=== PATIENT | female | born 1955 | race Caucasian/White ===

== ENCOUNTER 2018-07-16 02:14 | Inpatient (IN) | payer OTHER ==
[2018-07-16] MEDS ORDERED: ALBUTEROL SO4 2.5/IPRATROPIUM 0.5 INH SOL 3 ML VIAL.NEB. NEB ONE ×2 (03:04→03:12)
--- NOTE | 2018-07-16 03:19 | PDOC ---
History of Present Illness - General Chief Complaint: Shortness of Breath Stated Complaint: SOB Time Seen by Provider: 07/16/18 02:45 History Source: Retirement Records Exam Limitations: Clinical Condition, Unresponsive - History of Present Illness Initial Comments: 07/16/18 03:18 62F with a PMH of HTN, hypothyroidism, COPD, anxiety, dementia, paranoid schizophrenia, who presents to the ED with paperwork indicating she is short of breath. Pt is nonverbal. Past History - Past Medical History Allergies/Adverse Reactions: Allergies Allergy/AdvReac Type Severity Reaction Status Date / Time No Known Allergies Allergy Verified 07/16/18 02:27 - Suicide/Smoking/Psychosocial Hx Smoking History: Never smoked Have you smoked in the past 12 months: No Information on smoking cessation initiated: No Hx Alcohol Use: No Drug/Substance Use Hx: No Review of Systems - Review of Systems Able to Perform ROS?: No (nonverbal) Is the patient limited Tamazight proficient: No *Physical Exam - Vital Signs Last Vital Signs Temp Pulse Resp BP Pulse Ox 98.6 F 94 H 22 H 107/76 92 L 07/16/18 02:14 07/16/18 02:14 07/16/18 02:14 07/16/18 02:14 07/16/18 02:14 - Physical Exam Comments: 07/16/18 04:58 GENERAL: Well developed, well nourished. Asleep but arousable. HEENT: Normocephalic, atraumatic. Hearing grossly normal. Moist mucous membranes. PERRLA, EOMI. No conjunctival pallor. Sclera are non-icteric. NECK: Supple. Full ROM. No JVD. CARDIOVASCULAR: Regular rate and rhythm. No murmurs, rubs, or gallops. PULMONARY: Diffuse wheezing with R sided crackles. Tachypneic. ABDOMINAL: Soft. Non-tender. Non-distended. No rebound or guarding. MUSCULOSKELETAL: Normal range of motion at all joints. No bony deformities or tenderness. EXTREMITIES: No cyanosis. No clubbing. No edema. No calf tenderness or swelling. SKIN: Warm and dry. Normal capillary refill. No rashes. No jaundice. NEUROLOGICAL: Alert, awake, appropriate. Cranial nerves 2-12 grossly intact. PSYCHIATRIC: Poor eye contact. ED Treatment Course - LABORATORY CBC & Chemistry Diagram: 07/16/18 04:15 07/16/18 04:15 - RADIOLOGY Radiology Studies Ordered: Category Date Time Status CHEST X-RAY PORTABLE* [RAD] Stat Radiology 07/16/18 03:04 Ordered Medical Decision Making - Medical Decision Making 07/16/18 03:24 62F with MMP who presents with SOB. retirement called and nurse states that the pt was noted to be hypoxic to 87, given O2 without improvement. Pt nonverbal at baseline. Pt was noted to be drooling and altered. In our facility, the patient becomes intermittently agitated. Labs drawn and sent, concern for septic workup with pt to be altered. CXR shows R sided consolidation vs effusion. Giving zosyn for PNA coverage. CBC sohws WBC of 16. CMP, trop, BNP pending. 07/16/18 05:28 Trop and BNP negative. Pt endorsed to Dr. Marr for admission. *DC/Admit/Observation/Transfer Diagnosis at time of Disposition: COPD (chronic obstructive pulmonary disease) Qualifiers: COPD type: COPD with acute exacerbation Qualified Code(s): J44.1 - Chronic obstructive pulmonary disease with (acute) exacerbation - Discharge Dispostion Condition at time of disposition: Guarded Decision to Admit order: Yes - Referrals Referrals: Alyce Farah MD [Primary Care Provider] - - Patient Instructions - Post Discharge Activity
[2018-07-16] MEDS ORDERED: methylPREDNISolone NA SUCC 125 MG/2 ML VIAL ONE (04:03)
[2018-07-16 04:07] LABS: ALLENS TEST POSITIVE
[2018-07-16 04:10] LABS: ARTERIAL BLD GAS O2 SATURATION 87.8 % (95-98); ARTERIAL BLOOD GAS BASE EXCESS -2.2 meq/l (-2-2); ARTERIAL BLOOD GAS PCO2 39.2 mmHg (35-45); ARTERIAL BLOOD GAS pH 7.37 (7.35-7.45); CARBOXYHEMOGLOBIN 1.5 % (0-2)
[2018-07-16 04:37] LABS: BASO % 0.3 % (0-2.0); HEMATOCRIT 34.6 % (32.4-45.2); HEMOGLOBIN 11.5 GM/dL (10.7-15.3); LYMPH % 1.7 % (8-40); MCH 30.8 pg (25.7-33.7); MCHC 33.3 g/dl (32.0-36.0); MEAN CELL VOLUME 92.6 fl (80-96); MEAN PLT VOLUME 9.1 fl (7.5-11.1); MONO % 3.5 % (3.8-10.2); NEUT % 94.5 % (42.8-82.8); PLATELET COUNT 184 K/MM3 (134-434); RBC 3.74 M/mm3 (3.60-5.2); WHITE BLOOD COUNT 16.4 K/mm3 (4.0-10.0)
[2018-07-16 04:47] LABS: INR 1.34 (0.83-1.09); PROTHROMBIN TIME (PATIENT) 15.9 SEC (9.7-13.0)
[2018-07-16] MEDS ORDERED: PIPERACILLIN/TAZOB 4.5 GM 4.5 GM in DEXTROSE 5%-WATER 100 ML IVPB ONE (04:56)
[2018-07-16 05:00] LABS: ALBUMIN 2.9 g/dl (3.4-5.0); ALK PHOS 74 U/L (45-117); ANION GAP 10 MMOL/L (8-16); BILIRUBIN,TOTAL 0.8 mg/dL (0.2-1); BLOOD UREA NITROGEN 13 mg/dL (7-18); CALCIUM 8.5 mg/dL (8.5-10.1); CHLORIDE 96 mmol/L (98-107); CO2 22 mmol/L (21-32); CREATININE 0.9 mg/dL (0.55-1.3); GLUCOSE,RANDOM 154 mg/dL (74-106); MAGNESIUM 2.5 mg/dL (1.8-2.4); N-TERMINAL BNP 96.2 pg/ml (5-125); POTASSIUM 3.7 mmol/L (3.5-5.1); SGOT/AST 29 U/L (15-37); SGPT/ALT 25 U/L (13-61); SODIUM 128 mmol/L (136-145); TOT PROT 6.3 g/dl (6.4-8.2)
--- NOTE | 2018-07-16 05:05 | PDOC ---
Documentation entered by Berto Wniter SCRIBE, acting as scribe for Kiana James DO. Kiana James DO: This documentation has been prepared by the Maggy hart Matthew, SCRIBE, under my direction and personally reviewed by me in its entirety. I confirm that the documentation accurately reflects all work, treatment, procedures, and medical decision making performed by me. Attending Attestation - Resident Resident Name: Gary Fleming - ED Attending Attestation I have performed the following: I have examined & evaluated the patient, The case was reviewed & discussed with the resident, I agree w/resident's findings & plan - HPI HPI: 07/16/18 03:31 Patient is a 62 year old patient with a significant past medical history of HTN , osteoporosis, hypothyroidism, anxiety, paranoid schizophrenia, anemia, schizoaffective disorder, bipolar disorder who presents to the ED with complaints of shortness of breath that began just prior to ED arrival. As per NH staff, patient was noticed to be experiencing shortness of breath as well as experiencing urinary and bowel incontinence. Nurse stated patient appeared not at baseline, prompting her to send her to the ED for further evaluation. Denies chest pain, sob. Denies nausea,vomiting. Denies fevers, chills. Denies contact with sick individuals, out of state travelling. Denies dysuria, hematuria. Denies constipation, diarrhea. Denies any other symptoms. Allergies: NKDA Social history: No smoking. No alcohol. No illicit drugs. Surgical history: None PMD: Dr. Farah / Dr. Barber - Physicial Exam PE: 07/16/18 03:31 Agree with residents Physical Exam. - Medical Decision Making 07/16/18 05:03 62-year-old female with shortness of breath per staff at her long term facility where she is a permanent resident Exam consistent with likely COPD exacerbation with pneumonia versus CHF, increased markings are present in the right lower lobe on x-ray Solu-Medrol 125 mg as well as DuoNeb's 3 given in the department with some relief Plan for admission to medical service for further evaluation
[2018-07-16] MEDS ORDERED: SODIUM CHLORIDE 0.9% 1000 ML INFUS.BAG IV ONE (05:06)
[2018-07-16] MEDS ORDERED: PIPERACILLIN/TAZOB 4.5 GM 4.5 GM/100 ML BAG IVPB ONE (05:10)
[2018-07-16 05:27] LABS: ANISOCYTOSIS 0; MACROCYTOSIS 0; PLATELET ESTIMATE NORMAL
--- NOTE | 2018-07-16 05:32 | HP ---
CHIEF COMPLAINT:shortness of breath PCP: Gagan HISTORY OF PRESENT ILLNESS: 62 year old woman with baseline dementia and nonverbal, [facility]. As per [facility] staff, patient was noticed to be experiencing shortness of breath and was prompted to be sent to hospital. ER course was notable for: (1) methylprednisone (2) zosyn (3) ekg Recent Travel: unknown PAST MEDICAL HISTORY: HTN, osteoporosis, hypothyroidism, anxiety, paranoid schizophrenia, anemia, schizoaffective disorder, bipolar disorder PAST SURGICAL HISTORY: unknown Social History: unknown, jail resident Smoking: Alcohol: Drugs: Family History: unknown Allergies No Known Allergies Allergy (Verified 07/16/18 02:27) HOME MEDICATIONS: REVIEW OF SYSTEMS -unable to obtain - patient is nonverbal PHYSICAL EXAMINATION Vital Signs - 24 hr 07/16/18 07/16/18 02:14 04:27 Temperature 98.6 F 98.8 F Pulse Rate 94 H Respiratory 22 H Rate Blood Pressure 107/76 O2 Sat by Pulse 92 L Oximetry (%) GENERAL: Awake, alert, nonverbal, does not follow commands breathing appears labored HEAD: Normal with no signs of trauma. EYES: Pupils equal, round and reactive to light, extraocular movements intact, sclera anicteric, conjunctiva clear. No lid lag. EARS, NOSE, THROAT: Ears normal, nares patent, oropharynx clear without exudates. Moist mucous membranes. NECK: Normal range of motion, supple without lymphadenopathy, JVD, or masses. LUNGS: bibasilar exp wheezing , right lung decreased breath sounds HEART: Regular rate and rhythm, normal S1 and S2 without murmur, rub or gallop. ABDOMEN: Soft, nontender, not distended, normoactive bowel sounds, no guarding, no rebound, no masses. MUSCULOSKELETAL: Normal range of motion at all joints. No bony deformities or tenderness. No CVA tenderness. UPPER EXTREMITIES: 2+ pulses, warm, well-perfused. No cyanosis. No clubbing. No peripheral edema. LOWER EXTREMITIES: 2+ pulses, warm, well-perfused. No calf tenderness. No peripheral edema. NEUROLOGICAL: Cranial nerves II-XII intact. PSYCHIATRIC: uncooperative. Good eye contact. Appropriate mood and affect. SKIN: Warm, dry, normal turgor, no rashes or lesions noted, normal capillary refill. Laboratory Results - last 24 hr 07/16/18 07/16/18 07/16/18 03:58 04:15 04:15 WBC 16.4 H RBC 3.74 Hgb 11.5 Hct 34.6 MCV 92.6 MCH 30.8 MCHC 33.3 RDW 13.0 Plt Count 184 MPV 9.1 Absolute Neuts (auto) 15.5 H Neutrophils % 94.5 H Lymphocytes % 1.7 L Monocytes % 3.5 L Eosinophils % 0.0 Basophils % 0.3 Nucleated RBC % 0 PT with INR 15.90 H INR 1.34 H PTT (Actin FS) Anticoagulation Therapy No Result Required. Puncture Site Right radial ABG pH 7.37 ABG pCO2 at Pt Temp 39.2 ABG pO2 at Pt Temp 56.0 L ABG HCO3 22.2 ABG O2 Sat (Measured) 87.8 L ABG O2 Content 14.3 L ABG Base Excess -2.2 L Patrick Test Positive Carboxyhemoglobin 1.5 Methemoglobin 0.1 O2 Delivery Device Aerosol mask Oxygen Flow Rate 3l Vent Mode No Result Required. Vent Rate No Result Required. Mechanical Rate No Result Required. Pressure Support Vent No Result Required. Sodium Potassium Chloride Carbon Dioxide Anion Gap BUN Creatinine Creat Clearance w eGFR Random Glucose Lactic Acid Calcium Magnesium Total Bilirubin AST ALT Alkaline Phosphatase Creatine Kinase Troponin I B-Natriuretic Peptide Total Protein Albumin 07/16/18 07/16/18 07/16/18 04:15 04:15 04:15 WBC RBC Hgb Hct MCV MCH MCHC RDW Plt Count MPV Absolute Neuts (auto) Neutrophils % Lymphocytes % Monocytes % Eosinophils % Basophils % Nucleated RBC % PT with INR INR PTT (Actin FS) 47.1 H Anticoagulation Therapy Puncture Site ABG pH ABG pCO2 at Pt Temp ABG pO2 at Pt Temp ABG HCO3 ABG O2 Sat (Measured) ABG O2 Content ABG Base Excess Patrick Test Carboxyhemoglobin Methemoglobin O2 Delivery Device Oxygen Flow Rate Vent Mode Vent Rate Mechanical Rate Pressure Support Vent Sodium 128 L Potassium 3.7 Chloride 96 L Carbon Dioxide 22 Anion Gap 10 BUN 13 Creatinine 0.9 Creat Clearance w eGFR 63.04 Random Glucose 154 H Lactic Acid 1.8 Calcium 8.5 Magnesium 2.5 H Total Bilirubin 0.8 AST 29 ALT 25 Alkaline Phosphatase 74 Creatine Kinase 796 H Troponin I < 0.02 B-Natriuretic Peptide 96.2 Total Protein 6.3 L Albumin 2.9 L CXR and ekg reviewed ASSESSMENT/PLAN: #62yo woman with hypoxemic resp failure , sepsis secondary to community acquired pneumonia vs pleural effusion vs COPD/asthma exacerbation. PE will be ruled out. Likely large pleural effusion w/ compressive atelectasis. + leukocytosis. Lactate, troponin normal. S/p zosyn in ER. -admit to med/surg -supplemental oxygen via nasal cannula- maintain 02 sat >95% -duonebs - q6hrs -methylprednsione 40mg IV q8hrs -CTA of chest - evaluate pleural effusion, infiltrates, r/o PE -repeat ABG -ceftriaxone and azithromycin for pna - community acquired -blood cultures x2 sent -sputum cultur -urine legionella ag -pulmonary consult #hypothyroidism- -c/w home dose levothyroxine -send tsh #Bipolar disorder -c/w home dose lithium -send serum lithium level -450mg po bid -c/w Risperdal- verify dose in am with pharmacy #HTN - -c/w amlodipine #osteoporosis -will c/w alendronate 70mg qwk #DVT ppx- heparin sc #Advanced directives-patient is DNR/DNI Visit type - Emergency Visit Emergency Visit: Yes ED Registration Date: 07/16/18 Care time: The patient presented to the Emergency Department on the above date and was hospitalized for further evaluation of their emergent condition. - New Patient This patient is new to me today: Yes Date on this admission: 07/16/18 - Critical Care Critical Care patient: No
[2018-07-16] MEDS ORDERED: SENNOSIDES/DOCUSATE COMBO (SENNA PLUS) TABLET (UD) PO PRN (06:08)
[2018-07-16] MEDS ORDERED: ASPIRIN 81 MG CHEWABLE TABLETS PO ONE (06:15)
[2018-07-16] MEDS ORDERED: ASPIRIN 81 MG CHEWABLE TABLETS PO SCH (06:15)
[2018-07-16] MEDS ORDERED: PATIENT'S OWN MEDICATION (NON-FORMULARY) (Alendronate Sodium [Binosto] 70 MG) PO SCH (06:15)
[2018-07-16] MEDS: ALBUTEROL SO4 2.5/IPRATROPIUM 0.5 INH SOL 3 ML VIAL.NEB. NEB SCH ×4 (07:14→20:24)
[2018-07-16] MEDS: LEVOTHYROXINE NA 100 MCG TABLET (FP) PO SCH (07:14)
[2018-07-16 07:58] LABS: URINE APPEARANCE CLEAR; URINE BILIRUBIN NEGATIVE (NEGATIVE); URINE COLOR YELLOW; URINE GLUCOSE (UA) NEGATIVE (NEGATIVE); URINE KETONE NEGATIVE (NEGATIVE); URINE LEUK ESTERASE NEGATIVE (NEGATIVE); URINE NITRITE NEGATIVE (NEGATIVE); URINE PROTEIN NEGATIVE (NEGATIVE); URINE UROBILINOGEN 0.2 mg/dL (0.2-1.0)
--- NOTE | 2018-07-16 08:28 | EKG ---
Test Reason : Blood Pressure : / mmHG Vent. Rate : 079 BPM Atrial Rate : 079 BPM P-R Int : 150 ms QRS Dur : 078 ms QT Int : 380 ms P-R-T Axes : 010 023 027 degrees QTc Int : 435 ms NORMAL SINUS RHYTHM NORMAL ECG NO PREVIOUS ECGS AVAILABLE Confirmed by VIRI ZHOU, CAROLYN ([id number]) on 07/16/2018 8:27:47 AM Referred By: Kevin MARTIN Confirmed By:CAROLYN MEREDITH MD
[2018-07-16] MEDS ORDERED: amLODIPine BESYLATE 5 MG TABLET (FP) ONE (09:46)
--- NOTE | 2018-07-16 10:16 | PN ---
Progress Note (short form) - Note Progress Note: pt examinedin ER awake coughing active smoker in NH Vital Signs - 24 hr 07/16/18 07/16/18 07/16/18 02:14 02:19 04:27 Temperature 98.6 F 98.8 F Pulse Rate 94 H Pulse Rate [ Right Radial] Respiratory 22 H Rate Blood Pressure 107/76 Blood Pressure [Left Arm] O2 Sat by Pulse 92 L 97 Oximetry (%) 07/16/18 07/16/18 07/16/18 06:21 07:15 12:00 Temperature 97.7 F Pulse Rate 81 Pulse Rate [ 87 Right Radial] Respiratory 20 20 20 Rate Blood Pressure 118/69 Blood Pressure 119/79 [Left Arm] O2 Sat by Pulse 100 100 98 Oximetry (%) 07/16/18 14:20 Temperature 98.0 F Pulse Rate 94 H Pulse Rate [ Right Radial] Respiratory 20 Rate Blood Pressure 96/61 Blood Pressure [Left Arm] O2 Sat by Pulse Oximetry (%) Current Medications Generic Name Dose Route Start Last Admin Trade Name Freq PRN Reason Stop Dose Admin Albuterol/Ipratropium 1 amp 07/16/18 08:00 07/16/18 12:40 Duoneb - NEB 1 amp RQID STEWART Administration Amlodipine Besylate 5 mg 07/16/18 10:00 07/16/18 10:28 Norvasc - PO 5 mg DAILY STEWART Administration Docusate Sodium 100 mg 07/16/18 22:00 Colace - PO HS STEWART Gabapentin 100 mg 07/16/18 10:00 07/16/18 10:28 Neurontin - PO 100 mg BID STEWART Administration Azithromycin 500 mg/ Dextrose 250 mls @ 250 mls/hr 07/16/18 10:00 07/16/18 11 :31 IVPB 250 mls/hr DAILY STEWART Administration Ceftriaxone Sodium 1 gm/ 50 mls @ 100 mls/hr 07/16/18 10:00 07/16/18 10:28 Dextrose IVPB 100 mls/hr DAILY STEWART Administration Protocol Levetiracetam 500 mg 07/16/18 10:00 07/16/18 10:27 Keppra - PO 500 mg BID STEWART Administration Levothyroxine Sodium 100 mcg 07/16/18 07:00 07/16/18 07:14 Synthroid - PO 100 mcg DAILY@0700 STEWART Administration [place] Carbonate 450 mg 07/16/18 10:00 07/16/18 10:27 Eskalith - PO 450 mg BID STEWART Administration Methylprednisolone Sodium Succinate 40 mg 07/16/18 10:00 07/16/18 10:28 Solu-Medrol - IVPUSH 40 mg Q8H-IV STEWART Administration Risperidone 2 mg 07/16/18 10:00 07/16/18 10:28 Risperdal - PO 2 mg DAILY STEWART Administration Senna/Docusate Sodium 1 tablet 07/16/18 06:08 Pericolace - PO HS PRN CONSTIPATION Laboratory Results - last 24 hr 07/16/18 07/16/18 07/16/18 03:58 04:15 04:15 WBC 16.4 H RBC 3.74 Hgb 11.5 Hct 34.6 MCV 92.6 MCH 30.8 MCHC 33.3 RDW 13.0 Plt Count 184 MPV 9.1 Absolute Neuts (auto) 15.5 H Neutrophils % 94.5 H Neutrophils % (Manual) 96.0 H Band Neutrophils % 0.0 Lymphocytes % 1.7 L Lymphocytes % (Manual) 2.0 L Monocytes % 3.5 L Monocytes % (Manual) 2 L Eosinophils % 0.0 Eosinophils % (Manual) 0.0 Basophils % 0.3 Basophils % (Manual) 0.0 Myelocytes % (Man) 0 Promyelocytes % (Man) 0 Blast Cells % (Manual) 0 Nucleated RBC % 0 Metamyelocytes 0 Hypochromia 0 Platelet Estimate Normal Polychromasia 0 Poikilocytosis 0 Anisocytosis 0 Microcytosis 0 Macrocytosis 0 PT with INR 15.90 H INR 1.34 H PTT (Actin FS) Anticoagulation Therapy No Result Required. Puncture Site Right radial ABG pH 7.37 ABG pCO2 at Pt Temp 39.2 ABG pO2 at Pt Temp 56.0 L ABG HCO3 22.2 ABG O2 Sat (Measured) 87.8 L ABG O2 Content 14.3 L ABG Base Excess -2.2 L Patrick Test Positive Carboxyhemoglobin 1.5 Methemoglobin 0.1 O2 Delivery Device Aerosol mask Oxygen Flow Rate 3l Vent Mode No Result Required. Vent Rate No Result Required. Mechanical Rate No Result Required. Pressure Support Vent No Result Required. Sodium Potassium Chloride Carbon Dioxide Anion Gap BUN Creatinine Creat Clearance w eGFR Random Glucose Lactic Acid Calcium Magnesium Total Bilirubin AST ALT Alkaline Phosphatase Creatine Kinase Creatine Kinase Index CK-MB (CK-2) Troponin I B-Natriuretic Peptide Total Protein Albumin TSH Urine Color Urine Appearance Urine pH Ur Specific [place] Urine Protein Urine Glucose (UA) Urine Ketones Urine Blood Urine Nitrite Urine Bilirubin Urine Urobilinogen Ur Leukocyte Esterase Urine Osmolality Ur Random Creatinine Ur Random Sodium 07/16/18 07/16/18 07/16/18 04:15 04:15 04:15 WBC RBC Hgb Hct MCV MCH MCHC RDW Plt Count MPV Absolute Neuts (auto) Neutrophils % Neutrophils % (Manual) Band Neutrophils % Lymphocytes % Lymphocytes % (Manual) Monocytes % Monocytes % (Manual) Eosinophils % Eosinophils % (Manual) Basophils % Basophils % (Manual) Myelocytes % (Man) Promyelocytes % (Man) Blast Cells % (Manual) Nucleated RBC % Metamyelocytes Hypochromia Platelet Estimate Polychromasia Poikilocytosis Anisocytosis Microcytosis Macrocytosis PT with INR INR PTT (Actin FS) 47.1 H Anticoagulation Therapy Puncture Site ABG pH ABG pCO2 at Pt Temp ABG pO2 at Pt Temp ABG HCO3 ABG O2 Sat (Measured) ABG O2 Content ABG Base Excess Patrick Test Carboxyhemoglobin Methemoglobin O2 Delivery Device Oxygen Flow Rate Vent Mode Vent Rate Mechanical Rate Pressure Support Vent Sodium 128 L Potassium 3.7 Chloride 96 L Carbon Dioxide 22 Anion Gap 10 BUN 13 Creatinine 0.9 Creat Clearance w eGFR 63.04 Random Glucose 154 H Lactic Acid 1.8 Calcium 8.5 Magnesium 2.5 H Total Bilirubin 0.8 AST 29 ALT 25 Alkaline Phosphatase 74 Creatine Kinase 796 H Creatine Kinase Index 2.1 CK-MB (CK-2) 17.0 H Troponin I < 0.02 B-Natriuretic Peptide 96.2 Total Protein 6.3 L Albumin 2.9 L TSH 1.52 Urine Color Urine Appearance Urine pH Ur Specific [place] Urine Protein Urine Glucose (UA) Urine Ketones Urine Blood Urine Nitrite Urine Bilirubin Urine Urobilinogen Ur Leukocyte Esterase Urine Osmolality Ur Random Creatinine Ur Random Sodium 07/16/18 07/16/18 07/16/18 07:35 07:35 07:35 WBC RBC Hgb Hct MCV MCH MCHC RDW Plt Count MPV Absolute Neuts (auto) Neutrophils % Neutrophils % (Manual) Band Neutrophils % Lymphocytes % Lymphocytes % (Manual) Monocytes % Monocytes % (Manual) Eosinophils % Eosinophils % (Manual) Basophils % Basophils % (Manual) Myelocytes % (Man) Promyelocytes % (Man) Blast Cells % (Manual) Nucleated RBC % Metamyelocytes Hypochromia Platelet Estimate Polychromasia Poikilocytosis Anisocytosis Microcytosis Macrocytosis PT with INR INR PTT (Actin FS) Anticoagulation Therapy Puncture Site ABG pH ABG pCO2 at Pt Temp ABG pO2 at Pt Temp ABG HCO3 ABG O2 Sat (Measured) ABG O2 Content ABG Base Excess Patrick Test Carboxyhemoglobin Methemoglobin O2 Delivery Device Oxygen Flow Rate Vent Mode Vent Rate Mechanical Rate Pressure Support Vent Sodium Potassium Chloride Carbon Dioxide Anion Gap BUN Creatinine Creat Clearance w eGFR Random Glucose Lactic Acid Calcium Magnesium Total Bilirubin AST ALT Alkaline Phosphatase Creatine Kinase Creatine Kinase Index CK-MB (CK-2) Troponin I B-Natriuretic Peptide Total Protein Albumin TSH Urine Color Yellow Urine Appearance Clear Urine pH 6.0 Ur Specific [place] 1.005 L Urine Protein Negative Urine Glucose (UA) Negative Urine Ketones Negative Urine Blood Negative Urine Nitrite Negative Urine Bilirubin Negative Urine Urobilinogen 0.2 Ur Leukocyte Esterase Negative Urine Osmolality 138 L Ur Random Creatinine 28.0 L Ur Random Sodium 07/16/18 07/16/18 07:35 10:00 WBC RBC Hgb Hct MCV MCH MCHC RDW Plt Count MPV Absolute Neuts (auto) Neutrophils % Neutrophils % (Manual) Band Neutrophils % Lymphocytes % Lymphocytes % (Manual) Monocytes % Monocytes % (Manual) Eosinophils % Eosinophils % (Manual) Basophils % Basophils % (Manual) Myelocytes % (Man) Promyelocytes % (Man) Blast Cells % (Manual) Nucleated RBC % Metamyelocytes Hypochromia Platelet Estimate Polychromasia Poikilocytosis Anisocytosis Microcytosis Macrocytosis PT with INR INR PTT (Actin FS) Anticoagulation Therapy Puncture Site ABG pH ABG pCO2 at Pt Temp ABG pO2 at Pt Temp ABG HCO3 ABG O2 Sat (Measured) ABG O2 Content ABG Base Excess Patrick Test Carboxyhemoglobin Methemoglobin O2 Delivery Device Oxygen Flow Rate Vent Mode Vent Rate Mechanical Rate Pressure Support Vent Sodium Potassium Chloride Carbon Dioxide Anion Gap BUN Creatinine Creat Clearance w eGFR Random Glucose Lactic Acid Calcium Magnesium Total Bilirubin AST ALT Alkaline Phosphatase Creatine Kinase Creatine Kinase Index CK-MB (CK-2) Troponin I < 0.02 B-Natriuretic Peptide Total Protein Albumin TSH Urine Color Urine Appearance Urine pH Ur Specific [place] Urine Protein Urine Glucose (UA) Urine Ketones Urine Blood Urine Nitrite Urine Bilirubin Urine Urobilinogen Ur Leukocyte Esterase Urine Osmolality Ur Random Creatinine Ur Random Sodium < 18 L S1 S2 RRR Lungs diffuse ronchi Abd- soft, NT no edema PLAN IV solumedrol, nebs and antibiotics smoking cessation Chest CT Pulmonary eval continue with meds Problem List - Problems (1) COPD (chronic obstructive pulmonary disease) Code(s): J44.9 - CHRONIC OBSTRUCTIVE PULMONARY DISEASE, UNSPECIFIED Qualifiers: COPD type: COPD with acute exacerbation Qualified Code(s): J44.1 - Chronic obstructive pulmonary disease with (acute) exacerbation (2) COPD with acute exacerbation Code(s): J44.1 - CHRONIC OBSTRUCTIVE PULMONARY DISEASE W (ACUTE) EXACERBATION (3) Pleural effusion Code(s): J90 - PLEURAL EFFUSION, NOT ELSEWHERE CLASSIFIED
[2018-07-16] MEDS: LITHIUM CARBONATE 450 MG TABLET.ER PO SCH ×2 (10:27→21:13)
[2018-07-16] MEDS: levETIRAcetam 500 MG TABLET (FP) PO SCH ×2 (10:27→21:06)
[2018-07-16] MEDS: risperiDONE 1 MG TABLET (FP) PO SCH (10:28)
[2018-07-16] MEDS: GABAPENTIN 100 MG CAPSULE (FP) PO SCH ×2 (10:28→21:06)
[2018-07-16] MEDS: CEFTRIAXONE 1 GM in DEXTROSE 5%-WATER - 50 ML IVPB SCH (10:28)
[2018-07-16] MEDS: amLODIPine BESYLATE 5 MG TABLET (FP) PO SCH (10:28)
[2018-07-16] MEDS: methylPREDNISolone NA SUCC 40 MG/1 ML VIAL IVPUSH SCH ×2 (10:28→18:09)
[2018-07-16] MEDS: AZITHROMYCIN IVPB 500 MG in DEXTROSE 5%-WATER - 250 ML IVPB SCH (11:31)
[2018-07-16 13:41] VITALS: BMI 32.3
--- NOTE | 2018-07-16 14:10 | CON.PULM ---
Consult Consult Specialty:: PULMONARY Referred by:: Dr Barber Reason for Consultation:: pneumonia - History of Present Illness Chief Complaint: shortness of breath History of Present Illness: 62yo female with h/o HTN, hypothyroidism, schizoaffective disorder, dementia who was transferred for worsening shortness of breath. Pt unable to provide reliable history at this time. No fevers recorded but with leukocytosis on bloodwork and right sided effusion seen on CXR. Started on solumedrol and antibiotics. - History Source History Provided By: Medical Record Limitations to Obtaining History: Poor Historian - Past Medical History Cardio/Vascular: Yes: HTN ...: No - Alcohol/Substance Use Hx Alcohol Use: No - Smoking History Smoking history: Never smoked Have you smoked in the past 12 months: No Home Medications - Allergies Allergies/Adverse Reactions: Allergies Allergy/AdvReac Type Severity Reaction Status Date / Time No Known Allergies Allergy Verified 07/16/18 02:27 - Home Medications Home Medications: Ambulatory Orders Acetaminophen [Tylenol] 325 mg PO PRN 07/16/18 Alendronate Sodium [Binosto] 70 mg PO WEEKLY 07/16/18 Amlodipine Besylate 5 mg PO DAILY 07/16/18 Aspirin 81 mg PO ONCE 07/16/18 Budesonide/Formeterol Fumarate [SYMBICORT 160/4.5mcg -] 1 inh PO BID 07/16/18 Cyanocobalamin [Vitamin B12 -] 1,000 mcg PO DAILY 07/16/18 Docusate Sodium [Colace -] 100 mg PO HS 07/16/18 Ergocalciferol [Vitamin D2] 50,000 unit PO Q7D@1000 07/16/18 Ferrous Sulfate 325 mg PO ONCE 07/16/18 Gabapentin 100 mg PO BID 07/16/18 Levetiracetam 500 mg PO BID 07/16/18 Levothyroxine [Synthroid -] 100 mcg PO DAILY 07/16/18 [place] Carbonate [Eskalith -] 450 mg PO BID 07/16/18 Magnesium Hydroxide [Milk of Magnesia -] 30 ml PO PRN 07/16/18 Prednisone 10 mg PO DAILY 07/16/18 Prednisone [Prednisone 50 MG TABLETS] 50 mg PO DAILY 07/16/18 Risperidone 0.5 mg PO DAILY 07/16/18 Risperidone [Risperdal -] 2 mg PO DAILY 07/16/18 Sennosides/Docusate Sodium [Senna-Docusate Sodium Tablet] 1 each PO HS 07/16/18 Review of Systems Unable to obtain ROS, reason: poor historian Physical Exam Vital Sings: Vital Signs Temperature 97.7 F 07/16/18 12:00 Pulse Rate 81 07/16/18 12:00 Respiratory Rate 20 07/16/18 12:00 Blood Pressure 140/69 07/16/18 12:00 O2 Sat by Pulse Oximetry (%) 100 07/16/18 07:15 Constitutional: Yes: Anxious Eyes: Yes: Conjunctiva Clear, EOM Intact HENT: Yes: Atraumatic, Normocephalic Neck: Yes: Supple, Trachea Midline Cardiovascular: Yes: Regular Rate and Rhythm Respiratory: Yes: Rhonchi, Wheezes ...Clubbing: No Gastrointestinal: Yes: Normal Bowel Sounds, Soft. No: Tenderness Edema: No Neurological: Yes: Confusion Labs: CBC, BMP 07/16/18 04:15 07/16/18 04:15 ABG Results ABG pH 7.37 (7.35-7.45) 07/16/18 03:58 ABG pCO2 at Pt Temp 39.2 mmHg (35-45) 07/16/18 03:58 ABG pO2 at Pt Temp 56.0 mmHg (80-105) L 07/16/18 03:58 ABG HCO3 22.2 mmol/L (22-27) 07/16/18 03:58 ABG O2 Sat (Measured) 87.8 % (95-98) L 07/16/18 03:58 ABG O2 Content 14.3 % vol (15-22) L 07/16/18 03:58 ABG Base Excess -2.2 meq/l (-2-2) L 07/16/18 03:58 Imaging - Results Chest X-ray: Report Reviewed, Image Reviewed (right sided effusion, r/o infiltrate) Problem List - Problems (1) Pneumonia Code(s): J18.9 - PNEUMONIA, UNSPECIFIED ORGANISM (2) COPD with acute exacerbation Code(s): J44.1 - CHRONIC OBSTRUCTIVE PULMONARY DISEASE W (ACUTE) EXACERBATION (3) Pleural effusion Code(s): J90 - PLEURAL EFFUSION, NOT ELSEWHERE CLASSIFIED Assessment/Plan Pneumonia Acute COPD Exacerbation Right Pleural Effusion HTN Schizophrenia/Schizoaffective Disorder Bipolar Disorder - agree with antibiotics - f/u cultures - IV medrol - inhaled bronchodilators standing and PRN - O2 to keep SpO2 >90% - aspiration precautions - DVT prophylaxis Thank you for this consult Kenny Cedeno MD
--- NOTE | 2018-07-16 15:02 | ECHO ---
Name: BYNUMJEFFREY Exam:Adult Echocardiogram Study Date: 07/16/2018 10:26 AM Age: 62 yrs Reason For Study: R/O CHF Height: 61 in Weight: 174 lb BSA: 1.8 m2 MMode/2D Measurements & Calculations IVSd: 0.82 cm Ao root diam: 2.7 cm LVIDd: 4.4 cm LA dimension: 3.0 cm LVIDs: 2.9 cm LVPWd: 1.1 cm EDV(Teich): 89.0 ml LVOT diam: 2.0 cm ESV(Teich): 33.1 ml LAV (MOD-bp): 31.8 ml Doppler Measurements & Calculations MV E max isra: 61.1 cm/sec Ao V2 max: 163.0 cm/sec MV A max isra: 93.6 cm/sec Ao max P.6 mmHg MV E/A: 0.65 MV dec time: 0.11 sec MICHAEL(V,D): 2.6 cm2 LV V1 max P.7 mmHg TR max isra: 231.0 cm/sec LV V1 max: 129.0 cm/sec TR max P.4 mmHg PA V2 max: 114.0 cm/sec Med Peak E' Isra: 7.9 cm/sec PA max P.2 mmHg Med E/e': 7.7 Lat Peak E' Isra: 15.0 cm/sec Lat E/e': 4.1 Procedure A two-dimensional transthoracic echocardiogram with color flow and Doppler was performed. Left Ventricle The left ventricular size, thickness and function are normal. The left ventricular ejection fraction is normal. E/A reversal consistent with but not diagnostic of poor LV compliance. The left ventricular w all motion is normal. Right Ventricle The right ventricle is normal in size and function. Atria Normal left and right atrial size and function. Mitral Valve There is trivial mitral valve thickening. There is no mitral valve stenosis. There is trace to mild m itral regurgitation. Tricuspid Valve There is mild tricuspid valve thickening. There is no tricuspid stenosis. There is mild tricuspid regurgitation. Right ventricular systolic pressure is normal. Aortic Valve The aortic valve is normal in structure and function. No hemodynamically significant valvular aortic stenosis. No aortic regurgitation is present. Pulmonic Valve The pulmonic valve is not well visualized. Great Vessels The aortic root is normal size. Pericardium/Pleura There is no pericardial effusion. Interpretation Summary The left ventricular size, thickness and function are normal The left ventricular ejection fraction is normal. The left ventricular wall motion is normal. E/A reversal consistent with but not diagnostic of poor LV compliance There is trace to mild mitral regurgitation. There is mild tricuspid regurgitation. Right ventricular systolic pressure is normal. MD Bhavesh Galloway 07/16/2018 03:01 PM
[2018-07-16] MEDS ORDERED: HALOPERIDOL LACTATE 5 MG/ML IM PRN (16:32)
[2018-07-16] MEDS: HALOPERIDOL LACTATE 5 MG/ML IM PRN (21:05)
[2018-07-16] MEDS: DOCUSATE SODIUM 100 MG CAPSULE (FP) PO SCH (21:07)
[2018-07-17] MEDS: methylPREDNISolone NA SUCC 40 MG/1 ML VIAL IVPUSH SCH ×4 (01:37→18:32)
[2018-07-17] MEDS: LEVOTHYROXINE NA 100 MCG TABLET (FP) PO SCH (06:25)
[2018-07-17] MEDS: ALBUTEROL SO4 2.5/IPRATROPIUM 0.5 INH SOL 3 ML VIAL.NEB. NEB SCH ×4 (07:15→19:20)
[2018-07-17] MEDS ORDERED: DEXTROSE 5%-WATER - 50 ML IVPB ONE (10:27)
[2018-07-17] MEDS ORDERED: cefTRIAXone SODIUM 1 GM VIAL ONE (10:27)
[2018-07-17] MEDS: levETIRAcetam 500 MG TABLET (FP) PO SCH ×2 (10:33→21:29)
[2018-07-17] MEDS: LITHIUM CARBONATE 450 MG TABLET.ER PO SCH ×2 (10:33→21:30)
[2018-07-17] MEDS: CEFTRIAXONE 1 GM in DEXTROSE 5%-WATER - 50 ML IVPB SCH ×2 (10:33→12:30)
[2018-07-17] MEDS: risperiDONE 1 MG TABLET (FP) PO SCH (10:33)
[2018-07-17] MEDS: amLODIPine BESYLATE 5 MG TABLET (FP) PO SCH (10:33)
[2018-07-17] MEDS: GABAPENTIN 100 MG CAPSULE (FP) PO SCH ×2 (10:33→21:31)
[2018-07-17] MEDS: AZITHROMYCIN IVPB 500 MG/250 ML BAG IVPB SCH ×2 (10:34→12:30)
[2018-07-17] MEDS: AZITHROMYCIN IVPB 500 MG in DEXTROSE 5%-WATER - 250 ML IVPB SCH (10:37)
[2018-07-17] MEDS ORDERED: VANCOMYCIN 1 GM in D5W (PRE-DOCKED) 1,000 MG/250 ML IVPB ONE (11:15)
[2018-07-17] MEDS: NICOTINE 14 MG/24 HOURS TOPICAL PATCH TD SCH (12:31)
--- NOTE | 2018-07-17 13:47 | PN ---
Progress Note (short form) - Note Progress Note: PULMONARY Not answering questions today. No fevers recorded. Vital Signs Period Temp Pulse Resp BP Sys/Martinez Pulse Ox Last 24 Hr 98.0 F-98.5 F 71-98 20-20 91-134/52-94 97 Gen: NAD at rest Heart: RRR Lung: scattered wheezes Abd: soft, nontender Ext: no edema CBC, BMP 07/16/18 04:15 07/16/18 04:15 Active Medications Albuterol/Ipratropium (Duoneb -) 1 amp NEB RQID [facility] Last Admin: 07/17/18 11:00 Dose: 1 amp Amlodipine Besylate (Norvasc -) 5 mg PO DAILY [facility] Last Admin: 07/17/18 10:33 Dose: 5 mg Docusate Sodium (Colace -) 100 mg PO HS [facility] Last Admin: 07/16/18 21:07 Dose: 100 mg Gabapentin (Neurontin -) 100 mg PO BID [facility] Last Admin: 07/17/18 10:33 Dose: 100 mg Haloperidol (Haldol Injection (Fast Acting) -) 5 mg IM Q8H PRN PRN Reason: AGITATION Last Admin: 07/16/18 21:05 Dose: 5 mg Ceftriaxone Sodium 1 gm/ (Dextrose) 50 mls @ 100 mls/hr IVPB DAILY [facility]; Protocol Last Admin: 07/17/18 12:30 Dose: 100 mls/hr Azithromycin (Zithromax 500mg Ivpb (Pre-Docked)) 500 mg in 250 mls @ 250 mls/ hr IVPB DAILY [facility] Last Admin: 07/17/18 12:30 Dose: 250 mls/hr Levetiracetam (Keppra -) 500 mg PO BID [facility] Last Admin: 07/17/18 10:33 Dose: 500 mg Levothyroxine Sodium (Synthroid -) 100 mcg PO DAILY@0700 [facility] Last Admin: 07/17/18 06:25 Dose: 100 mcg [place] Carbonate (Eskalith -) 450 mg PO BID [facility] Last Admin: 07/17/18 10:33 Dose: 450 mg Methylprednisolone Sodium Succinate (Solu-Medrol -) 40 mg IVPUSH Q8H-IV [facility] Last Admin: 07/17/18 12:30 Dose: 40 mg Nicotine (Nicoderm Patch -) 14 mg TD DAILY [facility] Last Admin: 07/17/18 12:31 Dose: 14 mg Risperidone (Risperdal -) 2 mg PO DAILY [facility] Last Admin: 07/17/18 10:33 Dose: 2 mg Senna/Docusate Sodium (Pericolace -) 1 tablet PO HS PRN PRN Reason: CONSTIPATION A/P Pneumonia Acute COPD Exacerbation Right Pleural Effusion HTN Hyponatremia Schizophrenia/Schizoaffective Disorder Bipolar Disorder - continue antibiotics - f/u culture - continue medrol at current dose - inhaled bronchodilators standing and PRN - O2 to keep SpO2 >90% - aspiration precautions - DVT prophylaxis - outpt f/u of chest imaging Problem List - Problems (1) Pneumonia Code(s): J18.9 - PNEUMONIA, UNSPECIFIED ORGANISM (2) COPD with acute exacerbation Code(s): J44.1 - CHRONIC OBSTRUCTIVE PULMONARY DISEASE W (ACUTE) EXACERBATION (3) Pleural effusion Code(s): J90 - PLEURAL EFFUSION, NOT ELSEWHERE CLASSIFIED
--- NOTE | 2018-07-17 15:59 | PN ---
Progress Note (short form) - Note Progress Note: pt examined awake coughing was agitated today but now is calm Vital Signs - 24 hr 07/16/18 07/16/18 07/16/18 19:31 21:00 21:49 Temperature 98.5 F 98.0 F Pulse Rate 98 H 71 Respiratory 20 20 20 Rate Blood Pressure 91/52 L 104/59 L O2 Sat by Pulse 97 Oximetry (%) 07/16/18 07/16/18 07/17/18 22:32 23:25 05:47 Temperature 98.2 F 98.2 F 98.2 F Pulse Rate 82 80 97 H Respiratory 20 20 20 Rate Blood Pressure 100/62 116/71 O2 Sat by Pulse Oximetry (%) 07/17/18 10:52 Temperature 98.0 F Pulse Rate 97 H Respiratory 20 Rate Blood Pressure 134/94 O2 Sat by Pulse Oximetry (%) Current Medications Generic Name Dose Route Start Last Admin Trade Name Freq PRN Reason Stop Dose Admin Albuterol/Ipratropium 1 amp 07/16/18 08:00 07/17/18 11:00 Duoneb - NEB 1 amp RQID [facility] Administration Amlodipine Besylate 5 mg 07/16/18 10:00 07/17/18 10:33 Norvasc - PO 5 mg DAILY [facility] Administration Docusate Sodium 100 mg 07/16/18 22:00 07/16/18 21:07 Colace - PO 100 mg HS [facility] Administration Gabapentin 100 mg 07/16/18 10:00 07/17/18 10:33 Neurontin - PO 100 mg BID [facility] Administration Haloperidol 5 mg 07/16/18 16:33 07/16/18 21:05 Haldol Injection (Fast Acting) - IM 5 mg Q8H PRN Administration AGITATION Ceftriaxone Sodium 1 gm/ 50 mls @ 100 mls/hr 07/16/18 10:00 07/17/18 12:30 Dextrose IVPB 100 mls/hr DAILY [facility] Administration Protocol Azithromycin 500 mg in 250 mls @ 250 mls/hr 07/17/18 10:30 07/17/18 12:30 Zithromax 500mg Ivpb (Pre-Docked) IVPB 250 mls/hr DAILY [facility] Administration Levetiracetam 500 mg 07/16/18 10:00 07/17/18 10:33 Keppra - PO 500 mg BID [facility] Administration Levothyroxine Sodium 100 mcg 07/16/18 07:00 07/17/18 06:25 Synthroid - PO 100 mcg DAILY@0700 [facility] Administration [place] Carbonate 450 mg 07/16/18 10:00 07/17/18 10:33 Eskalith - PO 450 mg BID [facility] Administration Methylprednisolone Sodium Succinate 40 mg 07/16/18 10:00 07/17/18 12:30 Solu-Medrol - IVPUSH 40 mg Q8H-IV [facility] Administration Nicotine 14 mg 07/17/18 12:00 07/17/18 12:31 Nicoderm Patch - TD 14 mg DAILY [facility] Administration Risperidone 2 mg 07/16/18 10:00 07/17/18 10:33 Risperdal - PO 2 mg DAILY [facility] Administration Senna/Docusate Sodium 1 tablet 07/16/18 06:08 Pericolace - PO HS PRN CONSTIPATION Laboratory Results - last 24 hr 07/16/18 07/16/18 07/16/18 10:00 17:02 20:57 POC Glucometer 138 158 [place] 1.1 S1 S2 RRR Lungs diffuse ronchi Abd- soft, NT no edema PLAN IV solumedrol, nebs and antibiotics smoking cessation Chest CT - done Pulmonary eval Noted continue with meds Problem List - Problems (1) COPD (chronic obstructive pulmonary disease) Code(s): J44.9 - CHRONIC OBSTRUCTIVE PULMONARY DISEASE, UNSPECIFIED Qualifiers: COPD type: COPD with acute exacerbation Qualified Code(s): J44.1 - Chronic obstructive pulmonary disease with (acute) exacerbation (2) COPD with acute exacerbation Code(s): J44.1 - CHRONIC OBSTRUCTIVE PULMONARY DISEASE W (ACUTE) EXACERBATION (3) Pleural effusion Code(s): J90 - PLEURAL EFFUSION, NOT ELSEWHERE CLASSIFIED
[2018-07-17] MEDS: HALOPERIDOL LACTATE 5 MG/ML IM PRN (18:39)
[2018-07-17] MEDS ORDERED: PT OWN MED DRAWER 7, Y5N ONE (20:26)
[2018-07-17] MEDS: DOCUSATE SODIUM 100 MG CAPSULE (FP) PO SCH (21:31)
[2018-07-18] MEDS: methylPREDNISolone NA SUCC 40 MG/1 ML VIAL IVPUSH SCH ×2 (02:54→10:18)
[2018-07-18] MEDS: HALOPERIDOL LACTATE 5 MG/ML IM PRN (03:33)
[2018-07-18] MEDS: LEVOTHYROXINE NA 100 MCG TABLET (FP) PO SCH (06:08)
[2018-07-18] MEDS: ALBUTEROL SO4 2.5/IPRATROPIUM 0.5 INH SOL 3 ML VIAL.NEB. NEB SCH ×4 (08:55→20:30)
[2018-07-18] MEDS ORDERED: DEXTROSE 5%-WATER - 50 ML IVPB ONE (10:15)
[2018-07-18] MEDS ORDERED: cefTRIAXone SODIUM 1 GM VIAL ONE (10:15)
[2018-07-18] MEDS: AZITHROMYCIN IVPB 500 MG/250 ML BAG IVPB SCH (10:18)
[2018-07-18] MEDS: levETIRAcetam 500 MG TABLET (FP) PO SCH ×2 (10:19→21:00)
[2018-07-18] MEDS: ENOXAPARIN NA (PORCINE) 40 MG/0.4 ML DISP.SYRIN SQ SCH (10:19)
[2018-07-18] MEDS: CEFTRIAXONE 1 GM in DEXTROSE 5%-WATER - 50 ML IVPB SCH (10:19)
[2018-07-18] MEDS: GABAPENTIN 100 MG CAPSULE (FP) PO SCH ×2 (10:19→21:00)
[2018-07-18] MEDS: risperiDONE 1 MG TABLET (FP) PO SCH (10:19)
[2018-07-18] MEDS: LITHIUM CARBONATE 450 MG TABLET.ER PO SCH ×2 (10:19→21:00)
[2018-07-18] MEDS: NICOTINE 14 MG/24 HOURS TOPICAL PATCH TD SCH (10:19)
[2018-07-18] MEDS: amLODIPine BESYLATE 5 MG TABLET (FP) PO SCH (10:19)
--- NOTE | 2018-07-18 11:29 | PN ---
Progress Note (short form) - Note Progress Note: pt seen/ examined chart reviewed awake comfortable Vital Signs Temp 98.1 F 07/18/18 08:39 Pulse 86 07/18/18 08:39 Resp 22 H 07/18/18 08:39 BP 125/76 07/18/18 08:39 Pulse Ox 98 07/17/18 21:00 Intake & Output 07/17/18 07/17/18 07/18/18 11:59 23:59 11:59 Intake Total 1150 300 Balance 1150 300 Weight 173 lb 1 oz 174 lb Intake: IVPB 550 Oral 600 300 Other: Voiding Method Toilet Toilet # Unmeasured Voids Void 3 Bowel Movement Yes Yes # Bowel Movements 2 1 Weight Measurement Method Built in Bedscale Built in Bedscale Active Medications Albuterol/Ipratropium (Duoneb -) 1 amp NEB RQID [facility] Last Admin: 07/18/18 08:55 Dose: 1 amp Amlodipine Besylate (Norvasc -) 5 mg PO DAILY [facility] Last Admin: 07/18/18 10:19 Dose: 5 mg Docusate Sodium (Colace -) 100 mg PO HS [facility] Last Admin: 07/17/18 21:31 Dose: 100 mg Enoxaparin Sodium (Lovenox -) 40 mg SQ DAILY [facility] Last Admin: 07/18/18 10:19 Dose: 40 mg Gabapentin (Neurontin -) 100 mg PO BID [facility] Last Admin: 07/18/18 10:19 Dose: 100 mg Haloperidol (Haldol Injection (Fast Acting) -) 5 mg IM Q8H PRN PRN Reason: AGITATION Last Admin: 07/18/18 03:33 Dose: 5 mg Ceftriaxone Sodium 1 gm/ (Dextrose) 50 mls @ 100 mls/hr IVPB DAILY [facility]; Protocol Last Admin: 07/18/18 10:19 Dose: 100 mls/hr Azithromycin (Zithromax 500mg Ivpb (Pre-Docked)) 500 mg in 250 mls @ 250 mls/ hr IVPB DAILY [facility] Last Admin: 07/18/18 10:18 Dose: 250 mls/hr Levetiracetam (Keppra -) 500 mg PO BID [facility] Last Admin: 07/18/18 10:19 Dose: 500 mg Levothyroxine Sodium (Synthroid -) 100 mcg PO DAILY@0700 [facility] Last Admin: 07/18/18 06:08 Dose: 100 mcg [place] Carbonate (Eskalith -) 450 mg PO BID [facility] Last Admin: 07/18/18 10:19 Dose: 450 mg Methylprednisolone Sodium Succinate (Solu-Medrol -) 40 mg IVPUSH Q8H-IV [facility] Last Admin: 07/18/18 10:18 Dose: 40 mg Nicotine (Nicoderm Patch -) 14 mg TD DAILY [facility] Last Admin: 07/18/18 10:19 Dose: 14 mg Risperidone (Risperdal -) 2 mg PO DAILY [facility] Last Admin: 07/18/18 10:19 Dose: 2 mg Senna/Docusate Sodium (Pericolace -) 1 tablet PO HS PRN PRN Reason: CONSTIPATION CBC, BMP 07/16/18 04:15 07/16/18 04:15 Microbiology 07/16/18 04:15 Blood Culture - Preliminary Blood - Peripheral Venous Staphylococcus Coagulase Neg 07/17/18 15:09 Legionella Antigen - Final Urine For Antigen Detection Streptococcus pneumoniae Antigen (M - Final 07/16/18 04:15 Blood Culture - Preliminary Blood - Peripheral Venous NO GROWTH OBTAINED AFTER 48 HOURS, INCUBATION TO CONTINUE FOR 3 DAYS. 07/16/18 07:35 Urine Culture - Final Urine - Urine - Catheterized ct chest reviewed-- Physical Exam S1 S2 RRR Lungs --Bilateral ronchi Abd- soft, NT no edema PLAN IV solumedrol, nebs and antibiotics Believe + ve culture- Contaminant smoking cessation Chest CT - with contrast ordered i/d consult pending will follow If stable-- anticipate d/c in am Discussed with nursing staff Problem List - Problems (1) COPD (chronic obstructive pulmonary disease) Code(s): J44.9 - CHRONIC OBSTRUCTIVE PULMONARY DISEASE, UNSPECIFIED Qualifiers: COPD type: COPD with acute exacerbation Qualified Code(s): J44.1 - Chronic obstructive pulmonary disease with (acute) exacerbation (2) COPD with acute exacerbation Code(s): J44.1 - CHRONIC OBSTRUCTIVE PULMONARY DISEASE W (ACUTE) EXACERBATION (3) Pleural effusion Code(s): J90 - PLEURAL EFFUSION, NOT ELSEWHERE CLASSIFIED Ct chest with contrast f/u labs
--- NOTE | 2018-07-18 11:58 | PN ---
Progress Note (short form) - Note Progress Note: PULMONARY SITTING ON SIDE OF BED EATING ASKING FOR A COLA NOT IN RESP DISTRESS VSS/Afebrile Gen: NAD at rest Heart: RRR Lung: scattered rhonchi Abd: soft, nontender Ext: no edema Active Medications noted labs/meds/images/notes reviewed A/P Pneumonia Acute COPD Exacerbation Right Pleural Effusion HTN Hyponatremia Schizophrenia/Schizoaffective Disorder Bipolar Disorder - continue antibiotics - f/u culture - change medrol to prednisone - inhaled bronchodilators standing and PRN - O2 to keep SpO2 >90% - aspiration precautions - DVT prophylaxis - outpt f/u of chest Isabell CRUZ MD
[2018-07-18] MEDS ORDERED: predniSONE 20 MG TABLET (UD) PO SCH (12:00)
--- NOTE | 2018-07-18 12:49 | CON.ID ---
Consult Consult Specialty:: infectious diseases Referred by:: Reason for Consultation:: gm positive bacteremia - History of Present Illness Chief Complaint: cough,difficuilty breathing History of Present Illness: 62 year old woman with baseline dementia l, brought in from her longterm for shortness of breath. As per [facility] staff, patient was noticed to be experiencing shortness of breath and was prompted to be sent to hospital. patient currently says that she is having difficulty breathing having bronchitic cough - History Source History Provided By: Medical Record Limitations to Obtaining History: Poor Historian - Past Medical History Cardio/Vascular: Yes: HTN ...: No - Alcohol/Substance Use Hx Alcohol Use: No - Smoking History Smoking history: Never smoked Have you smoked in the past 12 months: No Home Medications - Allergies Allergies/Adverse Reactions: Allergies Allergy/AdvReac Type Severity Reaction Status Date / Time No Known Allergies Allergy Verified 07/16/18 02:27 - Home Medications Home Medications: Ambulatory Orders Acetaminophen [Tylenol] 325 mg PO PRN 07/16/18 Alendronate Sodium [Binosto] 70 mg PO WEEKLY 07/16/18 Amlodipine Besylate 5 mg PO DAILY 07/16/18 Aspirin 81 mg PO ONCE 07/16/18 Budesonide/Formeterol Fumarate [SYMBICORT 160/4.5mcg -] 1 inh PO BID 07/16/18 Cyanocobalamin [Vitamin B12 -] 1,000 mcg PO DAILY 07/16/18 Docusate Sodium [Colace -] 100 mg PO HS 07/16/18 Ergocalciferol [Vitamin D2] 50,000 unit PO Q7D@1000 07/16/18 Ferrous Sulfate 325 mg PO ONCE 07/16/18 Gabapentin 100 mg PO BID 07/16/18 Levetiracetam 500 mg PO BID 07/16/18 Levothyroxine [Synthroid -] 100 mcg PO DAILY 07/16/18 [place] Carbonate [Eskalith -] 450 mg PO BID 07/16/18 Magnesium Hydroxide [Milk of Magnesia -] 30 ml PO PRN 07/16/18 Prednisone 10 mg PO DAILY 07/16/18 Prednisone [Prednisone 50 MG TABLETS] 50 mg PO DAILY 07/16/18 Risperidone 0.5 mg PO DAILY 07/16/18 Risperidone [Risperdal -] 2 mg PO DAILY 07/16/18 Sennosides/Docusate Sodium [Senna-Docusate Sodium Tablet] 1 each PO HS 07/16/18 Review of Systems - Review of Systems Constitutional: reports: No Symptoms Eyes: reports: No Symptoms HENT: reports: No Symptoms Neck: reports: No Symptoms Cardiovascular: reports: No Symptoms Respiratory: reports: Cough, SOB, SOB on Exertion, Wheezing Gastrointestinal: reports: No Symptoms Genitourinary: reports: No Symptoms Musculoskeletal: reports: No Symptoms Integumentary: reports: No Symptoms Neurological: reports: No Symptoms Endocrine: reports: No Symptoms Hematology/Lymphatic: reports: No Symptoms Psychiatric: reports: No Symptoms Physical Exam Vital Signs: Vital Signs Temperature 98.1 F 07/18/18 08:39 Pulse Rate 86 07/18/18 08:39 Respiratory Rate 22 H 07/18/18 08:39 Blood Pressure 125/76 07/18/18 08:39 O2 Sat by Pulse Oximetry (%) 98 07/17/18 21:00 Constitutional: Yes: Calm, Anxious, Other (yelling) Cardiovascular: Yes: Regular Rate and Rhythm Respiratory: Yes: On Nasal O2, Poor Air Entry, Rhonchi, Wheezes Gastrointestinal: Yes: Normal Bowel Sounds, Soft Musculoskeletal: Yes: WNL Extremities: Yes: WNL Neurological: Yes: Alert Psychiatric: Yes: Alert Labs: CBC, BMP 07/16/18 04:15 07/16/18 04:15 Imaging - Results Cat Scan: Report Reviewed, Image Reviewed Assessment/Plan Problem List - Problems (1) COPD (chronic obstructive pulmonary disease) Code(s): J44.9 - CHRONIC OBSTRUCTIVE PULMONARY DISEASE, UNSPECIFIED Qualifiers: COPD type: COPD with acute exacerbation Qualified Code(s): J44.1 - Chronic obstructive pulmonary disease with (acute) exacerbation (2) COPD with acute exacerbation Code(s): J44.1 - CHRONIC OBSTRUCTIVE PULMONARY DISEASE W (ACUTE) EXACERBATION (3) Pleural effusion Code(s): J90 - PLEURAL EFFUSION, NOT ELSEWHERE CLASSIFIED gm positive bacteremia plan we will continue ceftriaxone for now i think the blood work is a contaminant rest as per pul and the team blood work
[2018-07-18] MEDS ORDERED: LORazepam 2 MG/ML SDV VIAL IM ONE (14:15)
[2018-07-18] MEDS: predniSONE 20 MG TABLET (UD) PO SCH (18:50)
[2018-07-18] MEDS ORDERED: PT OWN MED DRAWER 7, Y5N ONE (20:56)
[2018-07-18] MEDS ORDERED: INSULIN (NOVOLOG) ASPART 100 UNITS/ML 10ML VIAL ONE (20:56)
[2018-07-18] MEDS: DOCUSATE SODIUM 100 MG CAPSULE (FP) PO SCH (21:00)
[2018-07-19] MEDS: LEVOTHYROXINE NA 100 MCG TABLET (FP) PO SCH (06:22)
[2018-07-19] MEDS: ALBUTEROL SO4 2.5/IPRATROPIUM 0.5 INH SOL 3 ML VIAL.NEB. NEB SCH ×4 (08:11→20:09)
[2018-07-19] MEDS ORDERED: cefTRIAXone SODIUM 1 GM VIAL ONE (09:25)
[2018-07-19] MEDS ORDERED: DEXTROSE 5%-WATER - 50 ML IVPB ONE (09:25)
[2018-07-19] MEDS: predniSONE 20 MG TABLET (UD) PO SCH (09:31)
[2018-07-19] MEDS: levETIRAcetam 500 MG TABLET (FP) PO SCH ×2 (09:31→21:16)
[2018-07-19] MEDS: CEFTRIAXONE 1 GM in DEXTROSE 5%-WATER - 50 ML IVPB SCH (09:31)
[2018-07-19] MEDS: risperiDONE 1 MG TABLET (FP) PO SCH (09:31)
[2018-07-19] MEDS: GABAPENTIN 100 MG CAPSULE (FP) PO SCH ×2 (09:31→21:16)
[2018-07-19] MEDS: ENOXAPARIN NA (PORCINE) 40 MG/0.4 ML DISP.SYRIN SQ SCH ×2 (09:32→09:47)
[2018-07-19] MEDS: amLODIPine BESYLATE 5 MG TABLET (FP) PO SCH (09:32)
[2018-07-19] MEDS: NICOTINE 14 MG/24 HOURS TOPICAL PATCH TD SCH (09:32)
[2018-07-19] MEDS: LITHIUM CARBONATE 450 MG TABLET.ER PO SCH ×2 (09:32→21:16)
[2018-07-19] MEDS: AZITHROMYCIN IVPB 500 MG/250 ML BAG IVPB SCH (09:33)
--- NOTE | 2018-07-19 12:01 | PN ---
Progress Note (short form) - Note Progress Note: PULMONARY Sitting in chair eating lunch. No fevers recorded. Vital Signs Period Temp Pulse Resp BP Sys/Martinez Pulse Ox Last 24 Hr 98.5 F-98.7 F 72-111 20-24 117-138/76-93 96-98 Gen: NAD at rest Heart: RRR Lung: scattered wheezes mostly upper airway Abd: soft, nontender Ext: no edema CBC, BMP 07/16/18 04:15 07/16/18 04:15 Active Medications Albuterol/Ipratropium (Duoneb -) 1 amp NEB RQID [facility] Last Admin: 07/19/18 08:11 Dose: Not Given Amlodipine Besylate (Norvasc -) 5 mg PO DAILY [facility] Last Admin: 07/19/18 09:32 Dose: 5 mg Docusate Sodium (Colace -) 100 mg PO HS [facility] Last Admin: 07/18/18 21:00 Dose: 100 mg Enoxaparin Sodium (Lovenox -) 40 mg SQ DAILY [facility] Last Admin: 07/19/18 09:47 Dose: Not Given Gabapentin (Neurontin -) 100 mg PO BID [facility] Last Admin: 07/19/18 09:31 Dose: 100 mg Haloperidol (Haldol Injection (Fast Acting) -) 5 mg IM Q8H PRN PRN Reason: AGITATION Last Admin: 07/18/18 03:33 Dose: 5 mg Ceftriaxone Sodium 1 gm/ (Dextrose) 50 mls @ 100 mls/hr IVPB DAILY [facility]; Protocol Last Admin: 07/19/18 09:31 Dose: 100 mls/hr Azithromycin (Zithromax 500mg Ivpb (Pre-Docked)) 500 mg in 250 mls @ 250 mls/ hr IVPB DAILY [facility] Last Admin: 07/19/18 09:33 Dose: 250 mls/hr Levetiracetam (Keppra -) 500 mg PO BID [facility] Last Admin: 07/19/18 09:31 Dose: 500 mg Levothyroxine Sodium (Synthroid -) 100 mcg PO DAILY@0700 [facility] Last Admin: 07/19/18 06:22 Dose: 100 mcg [place] Carbonate (Eskalith -) 450 mg PO BID [facility] Last Admin: 07/19/18 09:32 Dose: 450 mg Nicotine (Nicoderm Patch -) 14 mg TD DAILY [facility] Last Admin: 07/19/18 09:32 Dose: 14 mg Prednisone (Deltasone -) 40 mg PO DAILY [facility] Last Admin: 07/19/18 09:31 Dose: 40 mg Risperidone (Risperdal -) 2 mg PO DAILY [facility] Last Admin: 07/19/18 09:31 Dose: 2 mg Senna/Docusate Sodium (Pericolace -) 1 tablet PO HS PRN PRN Reason: CONSTIPATION A/P Pneumonia Acute COPD Exacerbation Right Pleural Effusion HTN Hyponatremia Schizophrenia/Schizoaffective Disorder Bipolar Disorder - continue antibiotics - f/u culture - prednisone taper - inhaled bronchodilators standing and PRN - O2 to keep SpO2 >90% - aspiration precautions - DVT prophylaxis - outpt f/u of chest imaging Problem List - Problems (1) Pneumonia Code(s): J18.9 - PNEUMONIA, UNSPECIFIED ORGANISM (2) COPD with acute exacerbation Code(s): J44.1 - CHRONIC OBSTRUCTIVE PULMONARY DISEASE W (ACUTE) EXACERBATION (3) Pleural effusion Code(s): J90 - PLEURAL EFFUSION, NOT ELSEWHERE CLASSIFIED
--- NOTE | 2018-07-19 12:26 | PN ---
Progress Note (short form) - Note Progress Note: pt examined awake coughing was agitated today but now is calm she is sitting up in chair Vital Signs - 24 hr Vital Signs - 24 hr 07/18/18 07/18/18 07/19/18 21:00 22:00 06:53 Temperature 98.7 F 98.6 F Pulse Rate 84 72 Respiratory 20 20 20 Rate Blood Pressure 138/76 137/93 O2 Sat by Pulse 98 Oximetry (%) 07/19/18 09:00 Temperature 98.5 F Pulse Rate 111 H Respiratory 24 H Rate Blood Pressure 117/81 O2 Sat by Pulse 96 Oximetry (%) Current Medications Generic Name Dose Route Start Last Admin Trade Name Freq PRN Reason Stop Dose Admin Albuterol/Ipratropium 1 amp 07/16/18 08:00 07/19/18 12:25 Duoneb - NEB Not Given RQID [facility] Amlodipine Besylate 5 mg 07/16/18 10:00 07/19/18 09:32 Norvasc - PO 5 mg DAILY [facility] Administration Docusate Sodium 100 mg 07/16/18 22:00 07/18/18 21:00 Colace - PO 100 mg HS [facility] Administration Enoxaparin Sodium 40 mg 07/18/18 10:00 07/19/18 09:47 Lovenox - SQ Not Given DAILY [facility] Gabapentin 100 mg 07/16/18 10:00 07/19/18 09:31 Neurontin - PO 100 mg BID [facility] Administration Haloperidol 5 mg 07/16/18 16:33 07/18/18 03:33 Haldol Injection (Fast Acting) - IM 5 mg Q8H PRN Administration AGITATION Ceftriaxone Sodium 1 gm/ 50 mls @ 100 mls/hr 07/16/18 10:00 07/19/18 09:31 Dextrose IVPB 100 mls/hr DAILY [facility] Administration Protocol Azithromycin 500 mg in 250 mls @ 250 mls/hr 07/17/18 10:30 07/19/18 09:33 Zithromax 500mg Ivpb (Pre-Docked) IVPB 250 mls/hr DAILY [facility] Administration Levetiracetam 500 mg 07/16/18 10:00 07/19/18 09:31 Keppra - PO 500 mg BID [facility] Administration Levothyroxine Sodium 100 mcg 07/16/18 07:00 07/19/18 06:22 Synthroid - PO 100 mcg DAILY@0700 [facility] Administration [place] Carbonate 450 mg 07/16/18 10:00 07/19/18 09:32 Eskalith - PO 450 mg BID [facility] Administration Nicotine 14 mg 07/17/18 12:00 07/19/18 09:32 Nicoderm Patch - TD 14 mg DAILY [facility] Administration Prednisone 40 mg 07/18/18 18:00 07/19/18 09:31 Deltasone - PO 40 mg DAILY [facility] Administration Risperidone 2 mg 07/16/18 10:00 07/19/18 09:31 Risperdal - PO 2 mg DAILY [facility] Administration Senna/Docusate Sodium 1 tablet 07/16/18 06:08 Pericolace - PO HS PRN CONSTIPATION Laboratory Results - last 24 hr 07/18/18 07/19/18 20:59 11:39 POC Glucometer 173 112 S1 S2 RRR Lungs diffuse ronchi Abd- soft, NT no edema PLAN prednsione , nebs and antibiotics smoking cessation Chest CT - noted-- repeat in a month Pulmonary eval Noted continue with meds Problem List - Problems (1) COPD (chronic obstructive pulmonary disease) Code(s): J44.9 - CHRONIC OBSTRUCTIVE PULMONARY DISEASE, UNSPECIFIED Qualifiers: COPD type: COPD with acute exacerbation Qualified Code(s): J44.1 - Chronic obstructive pulmonary disease with (acute) exacerbation (2) COPD with acute exacerbation Code(s): J44.1 - CHRONIC OBSTRUCTIVE PULMONARY DISEASE W (ACUTE) EXACERBATION (3) Pleural effusion Code(s): J90 - PLEURAL EFFUSION, NOT ELSEWHERE CLASSIFIED
--- NOTE | 2018-07-19 17:29 | PN ---
Progress Note, Physician History of Present Illness: Pt seen, chart reviewed. Pt is alert, afebrile without respiratory distress. Remains afebrile. - Current Medication List Current Medications: Active Medications Albuterol/Ipratropium (Duoneb -) 1 amp NEB RQID [facility] Last Admin: 07/19/18 16:11 Dose: 1 amp Amlodipine Besylate (Norvasc -) 5 mg PO DAILY [facility] Last Admin: 07/19/18 09:32 Dose: 5 mg Docusate Sodium (Colace -) 100 mg PO HS [facility] Last Admin: 07/18/18 21:00 Dose: 100 mg Enoxaparin Sodium (Lovenox -) 40 mg SQ DAILY [facility] Last Admin: 07/19/18 09:47 Dose: Not Given Gabapentin (Neurontin -) 100 mg PO BID [facility] Last Admin: 07/19/18 09:31 Dose: 100 mg Haloperidol (Haldol Injection (Fast Acting) -) 5 mg IM Q8H PRN PRN Reason: AGITATION Last Admin: 07/18/18 03:33 Dose: 5 mg Ceftriaxone Sodium 1 gm/ (Dextrose) 50 mls @ 100 mls/hr IVPB DAILY [facility]; Protocol Last Admin: 07/19/18 09:31 Dose: 100 mls/hr Azithromycin (Zithromax 500mg Ivpb (Pre-Docked)) 500 mg in 250 mls @ 250 mls/ hr IVPB DAILY [facility] Last Admin: 07/19/18 09:33 Dose: 250 mls/hr Levetiracetam (Keppra -) 500 mg PO BID [facility] Last Admin: 07/19/18 09:31 Dose: 500 mg Levothyroxine Sodium (Synthroid -) 100 mcg PO DAILY@0700 [facility] Last Admin: 07/19/18 06:22 Dose: 100 mcg [place] Carbonate (Eskalith -) 450 mg PO BID [facility] Last Admin: 07/19/18 09:32 Dose: 450 mg Nicotine (Nicoderm Patch -) 14 mg TD DAILY [facility] Last Admin: 07/19/18 09:32 Dose: 14 mg Prednisone (Deltasone -) 40 mg PO DAILY [facility] Last Admin: 07/19/18 09:31 Dose: 40 mg Risperidone (Risperdal -) 2 mg PO DAILY [facility] Last Admin: 07/19/18 09:31 Dose: 2 mg Senna/Docusate Sodium (Pericolace -) 1 tablet PO HS PRN PRN Reason: CONSTIPATION - Objective Vital Signs: Vital Signs Temperature 98.5 F 07/19/18 09:00 Pulse Rate 111 H 07/19/18 09:00 Respiratory Rate 24 H 07/19/18 09:00 Blood Pressure 117/81 07/19/18 09:00 O2 Sat by Pulse Oximetry (%) 96 07/19/18 09:00 Constitutional: Yes: No Distress, Calm Cardiovascular: Yes: Regular Rate and Rhythm Respiratory: Yes: Diminished, Wheezes Gastrointestinal: Yes: Normal Bowel Sounds, Soft, Abdomen, Obese Neurological: Yes: Alert Labs: CBC, BMP 07/16/18 04:15 07/16/18 04:15 INR, PTT INR 1.34 (0.83-1.09) H 07/16/18 04:15 Microbiology 07/16/18 04:15 Blood - Peripheral Venous Blood Culture - Preliminary Staphylococcus Coagulase Neg 07/16/18 04:15 Blood - Peripheral Venous Blood Culture - Preliminary NO GROWTH OBTAINED AFTER 72 HOURS, INCUBATION TO CONTINUE FOR 2 DAYS. 07/17/18 15:09 Urine For Antigen Detection Legionella Antigen - Final 07/17/18 15:09 Urine For Antigen Detection Streptococcus pneumoniae Antigen (M - Final 07/16/18 07:35 Urine - Urine - Catheterized Urine Culture - Final - ....Imaging Cat Scan: Report Reviewed Problem List - Problems (1) COPD with acute exacerbation Code(s): J44.1 - CHRONIC OBSTRUCTIVE PULMONARY DISEASE W (ACUTE) EXACERBATION (2) Pleural effusion Code(s): J90 - PLEURAL EFFUSION, NOT ELSEWHERE CLASSIFIED (3) Pneumonia Code(s): J18.9 - PNEUMONIA, UNSPECIFIED ORGANISM Assessment/Plan -- continue current antibiotics, bronchodilators -- repeat cbc -- surveillance blood cultures (initial likely contaminated) Urinary Ags neg, Urine Cx neg Pt currently stable, continue monitor
[2018-07-19] MEDS ORDERED: PT OWN MED DRAWER 7, Y5N ONE (20:40)
[2018-07-19] MEDS: DOCUSATE SODIUM 100 MG CAPSULE (FP) PO SCH (21:16)
[2018-07-20] MEDS: HALOPERIDOL LACTATE 5 MG/ML IM PRN ×2 (03:57→12:24)
[2018-07-20] MEDS: LEVOTHYROXINE NA 100 MCG TABLET (FP) PO SCH (06:04)
[2018-07-20] MEDS: ALBUTEROL SO4 2.5/IPRATROPIUM 0.5 INH SOL 3 ML VIAL.NEB. NEB SCH ×4 (07:58→20:20)
[2018-07-20 08:12] LABS: BASO % 0.1 % (0-2.0); EOS % 3.7 % (0-4.5); HEMATOCRIT 36.7 % (32.4-45.2); HEMOGLOBIN 12.1 GM/dL (10.7-15.3); MCH 30.6 pg (25.7-33.7); MEAN CELL VOLUME 92.8 fl (80-96); MEAN PLT VOLUME 7.9 fl (7.5-11.1); MONO % 7.8 % (3.8-10.2); NEUT % 72.4 % (42.8-82.8); PLATELET COUNT 344 K/MM3 (134-434); RBC 3.95 M/mm3 (3.60-5.2); RDW 13.3 % (11.6-15.6); WHITE BLOOD COUNT 11.1 K/mm3 (4.0-10.0)
[2018-07-20] MEDS ORDERED: cefTRIAXone SODIUM 1 GM VIAL ONE (08:58)
[2018-07-20] MEDS ORDERED: DEXTROSE 5%-WATER - 50 ML IVPB ONE (08:59)
[2018-07-20] MEDS: ENOXAPARIN NA (PORCINE) 40 MG/0.4 ML DISP.SYRIN SQ SCH (09:12)
[2018-07-20] MEDS: amLODIPine BESYLATE 5 MG TABLET (FP) PO SCH (09:12)
[2018-07-20] MEDS: CEFTRIAXONE 1 GM in DEXTROSE 5%-WATER - 50 ML IVPB SCH (09:12)
[2018-07-20] MEDS: AZITHROMYCIN IVPB 500 MG/250 ML BAG IVPB SCH (09:12)
[2018-07-20] MEDS: levETIRAcetam 500 MG TABLET (FP) PO SCH ×2 (09:12→22:00)
[2018-07-20] MEDS: predniSONE 20 MG TABLET (UD) PO SCH (09:12)
[2018-07-20] MEDS: GABAPENTIN 100 MG CAPSULE (FP) PO SCH ×2 (09:12→22:01)
[2018-07-20] MEDS: NICOTINE 14 MG/24 HOURS TOPICAL PATCH TD SCH (09:12)
[2018-07-20] MEDS: risperiDONE 1 MG TABLET (FP) PO SCH (09:12)
[2018-07-20] MEDS: LITHIUM CARBONATE 450 MG TABLET.ER PO SCH ×2 (09:13→22:01)
--- NOTE | 2018-07-20 10:23 | PN ---
Progress Note (short form) - Note Progress Note: pt examined awake coughing 07/19/18 07/19/18 07/20/18 20:13 21:35 06:22 Temperature 98.7 F 98.9 F Pulse Rate 80 79 Respiratory 22 H 20 21 H Rate Blood Pressure 140/80 127/75 O2 Sat by Pulse 95 Oximetry (%) Current Medications Generic Name Dose Route Start Last Admin Trade Name Freq PRN Reason Stop Dose Admin Albuterol/Ipratropium 1 amp 07/16/18 08:00 07/20/18 11:20 Duoneb - NEB 1 amp RQID [facility] Administration Amlodipine Besylate 5 mg 07/16/18 10:00 07/20/18 09:12 Norvasc - PO 5 mg DAILY [facility] Administration Docusate Sodium 100 mg 07/16/18 22:00 07/19/18 21:16 Colace - PO 100 mg HS [facility] Administration Enoxaparin Sodium 40 mg 07/18/18 10:00 07/20/18 09:12 Lovenox - SQ Not Given DAILY [facility] Gabapentin 100 mg 07/16/18 10:00 07/20/18 09:12 Neurontin - PO 100 mg BID [facility] Administration Haloperidol 5 mg 07/16/18 16:33 07/20/18 12:24 Haldol Injection (Fast Acting) - IM 5 mg Q8H PRN Administration AGITATION Ceftriaxone Sodium 1 gm/ 50 mls @ 100 mls/hr 07/16/18 10:00 07/20/18 09:12 Dextrose IVPB 100 mls/hr DAILY [facility] Administration Protocol Azithromycin 500 mg in 250 mls @ 250 mls/hr 07/17/18 10:30 07/20/18 09:12 Zithromax 500mg Ivpb (Pre-Docked) IVPB 250 mls/hr DAILY [facility] Administration Levetiracetam 500 mg 07/16/18 10:00 07/20/18 09:12 Keppra - PO 500 mg BID [facility] Administration Levothyroxine Sodium 100 mcg 07/16/18 07:00 07/20/18 06:04 Synthroid - PO 100 mcg DAILY@0700 [facility] Administration [place] Carbonate 450 mg 07/16/18 10:00 07/20/18 09:13 Eskalith - PO 450 mg BID [facility] Administration Lorazepam 1 mg 07/20/18 14:39 07/20/18 15:06 Ativan - PO 1 mg Q8H PRN Administration ANXIETY Nicotine 14 mg 07/17/18 12:00 07/20/18 09:12 Nicoderm Patch - TD 14 mg DAILY [facility] Administration Prednisone 40 mg 07/18/18 18:00 07/20/18 09:12 Deltasone - PO 40 mg DAILY [facility] Administration Risperidone 2 mg 07/16/18 10:00 07/20/18 09:12 Risperdal - PO 2 mg DAILY [facility] Administration Senna/Docusate Sodium 1 tablet 07/16/18 06:08 Pericolace - PO HS PRN CONSTIPATION Laboratory Results - last 24 hr 07/19/18 07/20/18 07/20/18 21:18 05:59 07:40 WBC 11.1 H RBC 3.95 Hgb 12.1 Hct 36.7 MCV 92.8 MCH 30.6 MCHC 33.0 RDW 13.3 Plt Count 344 D MPV 7.9 D Absolute Neuts (auto) 8.0 Neutrophils % 72.4 D Neutrophils % (Manual) 67.3 Band Neutrophils % 0.0 Lymphocytes % 16.0 D Lymphocytes % (Manual) 23.8 D Monocytes % 7.8 D Monocytes % (Manual) 2 L Eosinophils % 3.7 D Eosinophils % (Manual) 3.9 D Basophils % 0.1 Basophils % (Manual) 0.0 Myelocytes % (Man) 0 Promyelocytes % (Man) 0 Blast Cells % (Manual) 0 Nucleated RBC % 0 Metamyelocytes 0 Hypochromia 0 Platelet Estimate Normal Platelet Comment Present Polychromasia 1+ Poikilocytosis 0 Anisocytosis 2+ Microcytosis 1+ Macrocytosis 0 Spherocytes 2+ POC Glucometer 134 90 07/20/18 11:18 WBC RBC Hgb Hct MCV MCH MCHC RDW Plt Count MPV Absolute Neuts (auto) Neutrophils % Neutrophils % (Manual) Band Neutrophils % Lymphocytes % Lymphocytes % (Manual) Monocytes % Monocytes % (Manual) Eosinophils % Eosinophils % (Manual) Basophils % Basophils % (Manual) Myelocytes % (Man) Promyelocytes % (Man) Blast Cells % (Manual) Nucleated RBC % Metamyelocytes Hypochromia Platelet Estimate Platelet Comment Polychromasia Poikilocytosis Anisocytosis Microcytosis Macrocytosis Spherocytes POC Glucometer 108 S1 S2 RRR Lungs diffuse ronchi Abd- soft, NT no edema PLAN prednisone taper , nebs and antibiotics smoking cessation Chest CT - noted-- repeat in a month Pulmonary eval Noted continue with meds repeated blood cultures- pending if negative, will dc [place] to [place] Problem List - Problems (1) COPD (chronic obstructive pulmonary disease) Code(s): J44.9 - CHRONIC OBSTRUCTIVE PULMONARY DISEASE, UNSPECIFIED Qualifiers: COPD type: COPD with acute exacerbation Qualified Code(s): J44.1 - Chronic obstructive pulmonary disease with (acute) exacerbation (2) COPD with acute exacerbation Code(s): J44.1 - CHRONIC OBSTRUCTIVE PULMONARY DISEASE W (ACUTE) EXACERBATION (3) Pleural effusion Code(s): J90 - PLEURAL EFFUSION, NOT ELSEWHERE CLASSIFIED
--- NOTE | 2018-07-20 11:23 | PN ---
Progress Note (short form) - Note Progress Note: PULMONARY Ambulating around room. No fevers recorded. Vital Signs Period Temp Pulse Resp BP Sys/Martinez Pulse Ox Last 24 Hr 98.7 F-98.9 F 79-80 20-22 127-140/75-80 95 Gen: NAD at rest Heart: RRR Lung: scattered wheezes mostly upper airway Abd: soft, nontender Ext: no edema CBC, BMP 07/20/18 07:40 07/16/18 04:15 Active Medications Albuterol/Ipratropium (Duoneb -) 1 amp NEB RQID [facility] Last Admin: 07/20/18 11:20 Dose: 1 amp Amlodipine Besylate (Norvasc -) 5 mg PO DAILY [facility] Last Admin: 07/20/18 09:12 Dose: 5 mg Docusate Sodium (Colace -) 100 mg PO HS [facility] Last Admin: 07/19/18 21:16 Dose: 100 mg Enoxaparin Sodium (Lovenox -) 40 mg SQ DAILY [facility] Last Admin: 07/20/18 09:12 Dose: Not Given Gabapentin (Neurontin -) 100 mg PO BID [facility] Last Admin: 07/20/18 09:12 Dose: 100 mg Haloperidol (Haldol Injection (Fast Acting) -) 5 mg IM Q8H PRN PRN Reason: AGITATION Last Admin: 07/20/18 03:57 Dose: 5 mg Ceftriaxone Sodium 1 gm/ (Dextrose) 50 mls @ 100 mls/hr IVPB DAILY [facility]; Protocol Last Admin: 07/20/18 09:12 Dose: 100 mls/hr Azithromycin (Zithromax 500mg Ivpb (Pre-Docked)) 500 mg in 250 mls @ 250 mls/ hr IVPB DAILY [facility] Last Admin: 07/20/18 09:12 Dose: 250 mls/hr Levetiracetam (Keppra -) 500 mg PO BID [facility] Last Admin: 07/20/18 09:12 Dose: 500 mg Levothyroxine Sodium (Synthroid -) 100 mcg PO DAILY@0700 [facility] Last Admin: 07/20/18 06:04 Dose: 100 mcg [place] Carbonate (Eskalith -) 450 mg PO BID [facility] Last Admin: 07/20/18 09:13 Dose: 450 mg Nicotine (Nicoderm Patch -) 14 mg TD DAILY [facility] Last Admin: 07/20/18 09:12 Dose: 14 mg Prednisone (Deltasone -) 40 mg PO DAILY [facility] Last Admin: 07/20/18 09:12 Dose: 40 mg Risperidone (Risperdal -) 2 mg PO DAILY [facility] Last Admin: 07/20/18 09:12 Dose: 2 mg Senna/Docusate Sodium (Pericolace -) 1 tablet PO HS PRN PRN Reason: CONSTIPATION A/P Pneumonia Acute COPD Exacerbation Right Pleural Effusion HTN Hyponatremia Schizophrenia/Schizoaffective Disorder Bipolar Disorder - continue antibiotics per ID - prednisone taper - inhaled bronchodilators standing and PRN - O2 to keep SpO2 >90% - aspiration precautions - DVT prophylaxis - outpt f/u of chest imaging Problem List - Problems (1) Pneumonia Code(s): J18.9 - PNEUMONIA, UNSPECIFIED ORGANISM (2) COPD with acute exacerbation Code(s): J44.1 - CHRONIC OBSTRUCTIVE PULMONARY DISEASE W (ACUTE) EXACERBATION (3) Pleural effusion Code(s): J90 - PLEURAL EFFUSION, NOT ELSEWHERE CLASSIFIED
[2018-07-20 13:00] LABS: ANISOCYTOSIS 2+; MACROCYTOSIS 0; PLATELET ESTIMATE NORMAL
--- NOTE | 2018-07-20 13:56 | PN ---
Progress Note, Physician History of Present Illness: Pt is alert, afebrile today. No respiratory distress noted. - Current Medication List Current Medications: Active Medications Albuterol/Ipratropium (Duoneb -) 1 amp NEB RQID [facility] Last Admin: 07/20/18 11:20 Dose: 1 amp Amlodipine Besylate (Norvasc -) 5 mg PO DAILY [facility] Last Admin: 07/20/18 09:12 Dose: 5 mg Docusate Sodium (Colace -) 100 mg PO HS [facility] Last Admin: 07/19/18 21:16 Dose: 100 mg Enoxaparin Sodium (Lovenox -) 40 mg SQ DAILY [facility] Last Admin: 07/20/18 09:12 Dose: Not Given Gabapentin (Neurontin -) 100 mg PO BID [facility] Last Admin: 07/20/18 09:12 Dose: 100 mg Haloperidol (Haldol Injection (Fast Acting) -) 5 mg IM Q8H PRN PRN Reason: AGITATION Last Admin: 07/20/18 12:24 Dose: 5 mg Ceftriaxone Sodium 1 gm/ (Dextrose) 50 mls @ 100 mls/hr IVPB DAILY [facility]; Protocol Last Admin: 07/20/18 09:12 Dose: 100 mls/hr Azithromycin (Zithromax 500mg Ivpb (Pre-Docked)) 500 mg in 250 mls @ 250 mls/ hr IVPB DAILY [facility] Last Admin: 07/20/18 09:12 Dose: 250 mls/hr Levetiracetam (Keppra -) 500 mg PO BID [facility] Last Admin: 07/20/18 09:12 Dose: 500 mg Levothyroxine Sodium (Synthroid -) 100 mcg PO DAILY@0700 [facility] Last Admin: 07/20/18 06:04 Dose: 100 mcg [place] Carbonate (Eskalith -) 450 mg PO BID [facility] Last Admin: 07/20/18 09:13 Dose: 450 mg Nicotine (Nicoderm Patch -) 14 mg TD DAILY [facility] Last Admin: 07/20/18 09:12 Dose: 14 mg Prednisone (Deltasone -) 40 mg PO DAILY [facility] Last Admin: 07/20/18 09:12 Dose: 40 mg Risperidone (Risperdal -) 2 mg PO DAILY [facility] Last Admin: 07/20/18 09:12 Dose: 2 mg Senna/Docusate Sodium (Pericolace -) 1 tablet PO HS PRN PRN Reason: CONSTIPATION - Objective Vital Signs: Vital Signs Temperature 98.9 F 07/20/18 06:22 Pulse Rate 79 07/20/18 06:22 Respiratory Rate 21 H 07/20/18 06:22 Blood Pressure 127/75 07/20/18 06:22 O2 Sat by Pulse Oximetry (%) 95 07/19/18 20:13 Constitutional: Yes: No Distress Cardiovascular: Yes: Regular Rate and Rhythm Respiratory: Yes: Wheezes Gastrointestinal: Yes: Normal Bowel Sounds, Soft, Abdomen, Obese Integumentary: Yes: WNL Labs: CBC, BMP 07/20/18 07:40 07/16/18 04:15 INR, PTT INR 1.34 (0.83-1.09) H 07/16/18 04:15 Microbiology 07/16/18 04:15 Blood - Peripheral Venous Blood Culture - Preliminary Staphylococcus Coagulase Neg 07/16/18 04:15 Blood - Peripheral Venous Blood Culture - Preliminary NO GROWTH OBTAINED AFTER 96 HOURS, INCUBATION TO CONTINUE FOR 1 DAYS. 07/17/18 15:09 Urine For Antigen Detection Legionella Antigen - Final 07/17/18 15:09 Urine For Antigen Detection Streptococcus pneumoniae Antigen (M - Final 07/16/18 07:35 Urine - Urine - Catheterized Urine Culture - Final Problem List - Problems (1) COPD with acute exacerbation Code(s): J44.1 - CHRONIC OBSTRUCTIVE PULMONARY DISEASE W (ACUTE) EXACERBATION (2) Pleural effusion Code(s): J90 - PLEURAL EFFUSION, NOT ELSEWHERE CLASSIFIED (3) Pneumonia Code(s): J18.9 - PNEUMONIA, UNSPECIFIED ORGANISM Assessment/Plan -- continue current antibiotics, bronchodilators -- wbc normal today, remains afebrile -- repeat blood culture results pending Pt currently stable, continue monitor
[2018-07-20] MEDS ORDERED: LORazepam 1 MG TABLET PO PRN (14:39)
[2018-07-20] MEDS: DOCUSATE SODIUM 100 MG CAPSULE (FP) PO SCH (22:01)
[2018-07-21] MEDS ORDERED: ACETAMINOPHEN 325 MG TABLET (FP) PO ONE (01:42)
[2018-07-21] MEDS: LEVOTHYROXINE NA 100 MCG TABLET (FP) PO SCH (06:12)
[2018-07-21] MEDS: ENOXAPARIN NA (PORCINE) 40 MG/0.4 ML DISP.SYRIN SQ SCH (09:14)
[2018-07-21] MEDS: NICOTINE 14 MG/24 HOURS TOPICAL PATCH TD SCH (09:14)
[2018-07-21] MEDS: predniSONE 20 MG TABLET (UD) PO SCH (09:15)
[2018-07-21] MEDS: levETIRAcetam 500 MG TABLET (FP) PO SCH (09:15)
[2018-07-21] MEDS: GABAPENTIN 100 MG CAPSULE (FP) PO SCH (09:15)
[2018-07-21] MEDS: risperiDONE 1 MG TABLET (FP) PO SCH (09:15)
[2018-07-21] MEDS: amLODIPine BESYLATE 5 MG TABLET (FP) PO SCH (09:15)
[2018-07-21] MEDS: AZITHROMYCIN IVPB 500 MG/250 ML BAG IVPB SCH (09:16)
[2018-07-21] MEDS: CEFTRIAXONE 1 GM in DEXTROSE 5%-WATER - 50 ML IVPB SCH (09:16)
[2018-07-21] MEDS ORDERED: PT OWN MED DRAWER 7, Y5N ONE ×2 (09:25→09:32)
[2018-07-21] MEDS: LITHIUM CARBONATE 450 MG TABLET.ER PO SCH (09:26)
--- NOTE | 2018-07-21 10:48 | PN ---
Progress Note, Physician History of Present Illness: stable doing well no new issue says she feels cold - Current Medication List Current Medications: Active Medications Amlodipine Besylate (Norvasc -) 5 mg PO DAILY [facility] Last Admin: 07/21/18 09:15 Dose: 5 mg Docusate Sodium (Colace -) 100 mg PO HS [facility] Last Admin: 07/20/18 22:01 Dose: 100 mg Enoxaparin Sodium (Lovenox -) 40 mg SQ DAILY [facility] Last Admin: 07/21/18 09:14 Dose: 40 mg Gabapentin (Neurontin -) 100 mg PO BID [facility] Last Admin: 07/21/18 09:15 Dose: 100 mg Haloperidol (Haldol Injection (Fast Acting) -) 5 mg IM Q8H PRN PRN Reason: AGITATION Last Admin: 07/20/18 12:24 Dose: 5 mg Levetiracetam (Keppra -) 500 mg PO BID [facility] Last Admin: 07/21/18 09:15 Dose: 500 mg Levothyroxine Sodium (Synthroid -) 100 mcg PO DAILY@0700 [facility] Last Admin: 07/21/18 06:12 Dose: 100 mcg [place] Carbonate (Eskalith -) 450 mg PO BID [facility] Last Admin: 07/21/18 09:26 Dose: 450 mg Lorazepam (Ativan -) 1 mg PO Q8H PRN PRN Reason: ANXIETY Last Admin: 07/20/18 15:06 Dose: 1 mg Nicotine (Nicoderm Patch -) 14 mg TD DAILY [facility] Last Admin: 07/21/18 09:14 Dose: 14 mg Prednisone (Deltasone -) 40 mg PO DAILY [facility] Last Admin: 07/21/18 09:15 Dose: 40 mg Risperidone (Risperdal -) 2 mg PO DAILY [facility] Last Admin: 07/21/18 09:15 Dose: 2 mg Senna/Docusate Sodium (Pericolace -) 1 tablet PO HS PRN PRN Reason: CONSTIPATION - Objective Vital Signs: Vital Signs Temperature 98.8 F 07/21/18 05:59 Pulse Rate 81 07/21/18 05:59 Respiratory Rate 20 07/21/18 05:59 Blood Pressure 143/86 07/21/18 05:59 O2 Sat by Pulse Oximetry (%) 94 L 07/20/18 21:00 Constitutional: Yes: No Distress, Calm Cardiovascular: Yes: Regular Rate and Rhythm Respiratory: Yes: Regular, CTA Bilaterally Gastrointestinal: Yes: Normal Bowel Sounds, Soft Musculoskeletal: Yes: WNL Extremities: Yes: WNL Neurological: Yes: Alert, Oriented Labs: CBC, BMP 07/20/18 07:40 07/16/18 04:15 INR, PTT INR 1.34 (0.83-1.09) H 07/16/18 04:15 Assessment/Plan Problem List - Problems (1) COPD (chronic obstructive pulmonary disease) Code(s): J44.9 - CHRONIC OBSTRUCTIVE PULMONARY DISEASE, UNSPECIFIED Qualifiers: COPD type: COPD with acute exacerbation Qualified Code(s): J44.1 - Chronic obstructive pulmonary disease with (acute) exacerbation (2) COPD with acute exacerbation Code(s): J44.1 - CHRONIC OBSTRUCTIVE PULMONARY DISEASE W (ACUTE) EXACERBATION (3) Pleural effusion Code(s): J90 - PLEURAL EFFUSION, NOT ELSEWHERE CLASSIFIED gm positive bacteremia plan will change to oral abx rest as per the team
--- NOTE | 2018-07-21 10:54 | DS ---
Physical Examination Vital Signs: Vital Signs Temperature 98.8 F 07/21/18 05:59 Pulse Rate 81 07/21/18 05:59 Respiratory Rate 20 07/21/18 05:59 Blood Pressure 143/86 07/21/18 05:59 O2 Sat by Pulse Oximetry (%) 94 L 07/20/18 21:00 Findings/Remarks: pt seen/ examined chart reviewed awake/ comfortable feels ok Constitutional: Yes: No Distress, Calm Eyes: Yes: Conjunctiva Clear Neck: Yes: Supple Cardiovascular: Yes: Regular Rate and Rhythm Respiratory: Yes: Rhonchi (scattered) Gastrointestinal: Yes: Normal Bowel Sounds, Soft Edema: No Neurological: Yes: Alert Psychiatric: Yes: Alert Labs: CBC, BMP 07/20/18 07:40 07/16/18 04:15 Discharge Summary Reason For Visit: CHRONIC ABSTRUCTIVE PULMONARY DISEASE WITH ACUTE Current Active Problems COPD (chronic obstructive pulmonary disease) (Acute) COPD with acute exacerbation (Acute) Pleural effusion (Acute) Pneumonia (Acute) Hospital Course: Pt admitted for copd exac/ Pneumonia treated with abx/ steroids got better ct chest done stable for d/c now -- back to long-term In summary Pneumonia Acute COPD Exacerbation Right Pleural Effusion HTN Hyponatremia Schizophrenia/Schizoaffective Disorder Bipolar Disorder Meds reconcilled smoking cessation counselling. Condition: Guarded - Instructions [facility] - Home Medications Comprehensive Discharge Medication List: Ambulatory Orders Acetaminophen [Tylenol] 325 mg PO PRN 07/16/18 Alendronate Sodium [Binosto] 70 mg PO WEEKLY 07/16/18 Amlodipine Besylate 5 mg PO DAILY 07/16/18 Aspirin 81 mg PO ONCE 07/16/18 Budesonide/Formeterol Fumarate [SYMBICORT 160/4.5mcg -] 1 inh PO BID 07/16/18 Cyanocobalamin [Vitamin B12 -] 1,000 mcg PO DAILY 07/16/18 Docusate Sodium [Colace -] 100 mg PO HS 07/16/18 Ergocalciferol [Vitamin D2] 50,000 unit PO Q7D@1000 07/16/18 [place]ous Sulfate 325 mg PO ONCE 07/16/18 Gabapentin 100 mg PO BID 07/16/18 Levetiracetam 500 mg PO BID 07/16/18 Levothyroxine [Synthroid -] 100 mcg PO DAILY 07/16/18 [place] Carbonate [Eskalith -] 450 mg PO BID 07/16/18 Magnesium Hydroxide [Milk of Magnesia -] 30 ml PO PRN 07/16/18 Risperidone [Risperdal -] 2 mg PO DAILY 07/16/18 Sennosides/Docusate Sodium [Senna-Docusate Sodium Tablet] 1 each PO HS 07/16/18 Albuterol 2.5/Ipratropium 0.5 [Duoneb -] 1 amp NEB RQID amp 07/21/18 Amlodipine Besylate [Norvasc -] 5 mg PO DAILY tablet 07/21/18 Amox-Tr/K Cl [Augmentin 875-125mg Tablet -] 1 tab PO BID@0800,1730 5 Days #10 tablet 07/21/18 Nicotine Patch [Nicoderm Patch -] 14 mg TD DAILY patch 07/21/18 predniSONE [Deltasone -] 40 mg PO DAILY tablet 07/21/18
--- NOTE | 2018-07-21 11:29 | PN ---
Progress Note (short form) - Note Progress Note: Feels OK. Ambulating around the room. No CP or SOB. Intake & Output 07/18/18 07/19/18 07/20/18 07/21/18 23:59 23:59 23:59 23:59 Intake Total 1700 2525 1280 300 Balance 1700 2525 1280 300 Weight 174 lb 173 lb 2 oz 168 lb 6 oz 172 lb 3 oz Last Vital Signs Temp Pulse Resp BP Pulse Ox 98.8 F 81 20 143/86 94 L 07/21/18 05:59 07/21/18 05:59 07/21/18 05:59 07/21/18 05:59 07/21/18 09:00 Active Medications Amlodipine Besylate (Norvasc -) 5 mg PO DAILY [facility] Last Admin: 07/21/18 09:15 Dose: 5 mg Amoxicillin/Clavulanate Potassium (Augmentin - 875mg Tablet) 1 tab PO BID@0800, 1730 [facility] Docusate Sodium (Colace -) 100 mg PO HS [facility] Last Admin: 07/20/18 22:01 Dose: 100 mg Enoxaparin Sodium (Lovenox -) 40 mg SQ DAILY [facility] Last Admin: 07/21/18 09:14 Dose: 40 mg Gabapentin (Neurontin -) 100 mg PO BID [facility] Last Admin: 07/21/18 09:15 Dose: 100 mg Haloperidol (Haldol Injection (Fast Acting) -) 5 mg IM Q8H PRN PRN Reason: AGITATION Last Admin: 07/20/18 12:24 Dose: 5 mg Levetiracetam (Keppra -) 500 mg PO BID [facility] Last Admin: 07/21/18 09:15 Dose: 500 mg Levothyroxine Sodium (Synthroid -) 100 mcg PO DAILY@0700 [facility] Last Admin: 07/21/18 06:12 Dose: 100 mcg [place] Carbonate (Eskalith -) 450 mg PO BID [facility] Last Admin: 07/21/18 09:26 Dose: 450 mg Lorazepam (Ativan -) 1 mg PO Q8H PRN PRN Reason: ANXIETY Last Admin: 07/20/18 15:06 Dose: 1 mg Nicotine (Nicoderm Patch -) 14 mg TD DAILY [facility] Last Admin: 07/21/18 09:14 Dose: 14 mg Prednisone (Deltasone -) 40 mg PO DAILY [facility] Last Admin: 07/21/18 09:15 Dose: 40 mg Risperidone (Risperdal -) 2 mg PO DAILY [facility] Last Admin: 07/21/18 09:15 Dose: 2 mg Senna/Docusate Sodium (Pericolace -) 1 tablet PO HS PRN PRN Reason: CONSTIPATION Gen: NAD at rest Heart: RRR Lung: scattered rhonchi, no wheezes Abd: soft, nontender Ext: no edema Laboratory Results - last 24 hr 07/20/18 07/20/18 07/20/18 07:40 17:07 22:13 Neutrophils % (Manual) 67.3 Band Neutrophils % 0.0 Lymphocytes % (Manual) 23.8 D Monocytes % (Manual) 2 L Eosinophils % (Manual) 3.9 D Basophils % (Manual) 0.0 Myelocytes % (Man) 0 Promyelocytes % (Man) 0 Blast Cells % (Manual) 0 Metamyelocytes 0 Hypochromia 0 Platelet Estimate Normal Platelet Comment Present Polychromasia 1+ Poikilocytosis 0 Anisocytosis 2+ Microcytosis 1+ Macrocytosis 0 Spherocytes 2+ POC Glucometer 181 101 07/21/18 06:30 Neutrophils % (Manual) Band Neutrophils % Lymphocytes % (Manual) Monocytes % (Manual) Eosinophils % (Manual) Basophils % (Manual) Myelocytes % (Man) Promyelocytes % (Man) Blast Cells % (Manual) Metamyelocytes Hypochromia Platelet Estimate Platelet Comment Polychromasia Poikilocytosis Anisocytosis Microcytosis Macrocytosis Spherocytes POC Glucometer 106 Problem List - Problems (1) Pneumonia Code(s): J18.9 - PNEUMONIA, UNSPECIFIED ORGANISM (2) COPD with acute exacerbation Code(s): J44.1 - CHRONIC OBSTRUCTIVE PULMONARY DISEASE W (ACUTE) EXACERBATION (3) Pleural effusion Code(s): J90 - PLEURAL EFFUSION, NOT ELSEWHERE CLASSIFIED A/P Pneumonia Acute COPD Exacerbation Right Pleural Effusion HTN Hyponatremia Schizophrenia/Schizoaffective Disorder Bipolar Disorder - prednisone taper - ABX per ID - inhaled bronchodilators standing and PRN - O2 to keep SpO2 >90% - aspiration precautions - DVT prophylaxis - outpatient f/u of chest imaging - No smoking - D/C planning Dr Rider
[2018-07-21 12:59] VITALS: BP 120/80; PULSE 80; TEMP 98
[2018-07-21] MEDS ORDERED: AMOX TR/POT CLAV 875MG/125MG TABLETS (FP) PO SCH (17:30)
== END 2018-07-21 14:43 | DRG 190 ==
LOC: JER 02:14 → JERBED 05:25 → J7W 11:48 → J6S 21:30
PROVIDERS: ADMIT Internal Medicine; ATTEND Internal Medicine
DX: J44.0 Chronic obstructive pulmonary disease with (acute) lower respiratory infection (principal); J18.9 Pneumonia, unspecified organism; F20.0 Paranoid schizophrenia; E87.1 Hypo-osmolality and hyponatremia; J90 Pleural effusion, not elsewhere classified; J44.1 Chronic obstructive pulmonary disease with (acute) exacerbation; I10 Essential (primary) hypertension; M81.0 Age-related osteoporosis without current pathological fracture; E03.9 Hypothyroidism, unspecified; F41.9 Anxiety disorder, unspecified; D64.9 Anemia, unspecified; F31.9 Bipolar disorder, unspecified; F03.90 Unspecified dementia, unspecified severity, without behavioral disturbance, psychotic disturbance, mood disturbance, and anxiety
CPT/HCPCS: 36415; 36600; 70450-TC; 71045-TC-FY; 71250-TC; 71260-TC; 80053; 80178; 81003; 82375; 82550; 82553; 82565; 82803; 82962; 83050; 83605; 83735; 83880; 83935; 84300; 84443; 84484; 85025; 85610; 85730; 87040; 87086; 87186; 87899; 93005; 93010; 93306-TC; 94640; 99284-25; J2794; J7030

== ENCOUNTER 2018-08-14 02:17 | Emergency (ER) | payer OTHER | END 2018-08-14 04:48 | disposition home or self-care (01) | LOC: JER 02:17 ==

== ENCOUNTER 2018-08-25 09:10 | Emergency (ER) | payer OTHER ==
--- NOTE | 2018-08-25 09:16 | PDOC ---
History of Present Illness - General Stated Complaint: AMS - History of Present Illness Initial Comments: The pt is a 62F w/ a history of schizophrenia, bipolar disorder, COPD who presents from [facility] for evaluation of reported increased aggression and increased work of breathing. Pt unable to provide additional history. Spoke with nurse at [facility], who stated that at baseline, the pt is intermittently able to have short coherent conversations and will be intermittently aggressive. She stated that today, the pt refused her CXR and they were unable to obtain an O2 saturation which was an additional reason they wanted her evaluated. 08/25/18 09:17 Past History - Past Medical History Allergies/Adverse Reactions: Allergies Allergy/AdvReac Type Severity Reaction Status Date / Time No Known Allergies Allergy Verified 08/25/18 09:32 Home Medications: Ambulatory Orders Acetaminophen [Tylenol] 325 mg PO PRN 07/16/18 Alendronate Sodium [Binosto] 70 mg PO WEEKLY 07/16/18 Amlodipine Besylate 5 mg PO DAILY 07/16/18 Aspirin 81 mg PO ONCE 07/16/18 Budesonide/Formeterol Fumarate [SYMBICORT 160/4.5mcg -] 1 inh PO BID 07/16/18 Cyanocobalamin [Vitamin B12 -] 1,000 mcg PO DAILY 07/16/18 Docusate Sodium [Colace -] 100 mg PO HS 07/16/18 Ergocalciferol [Vitamin D2] 50,000 unit PO Q7D@1000 07/16/18 Ferrous Sulfate 325 mg PO ONCE 07/16/18 Gabapentin 100 mg PO BID 07/16/18 Levetiracetam 500 mg PO BID 07/16/18 Levothyroxine [Synthroid -] 100 mcg PO DAILY 07/16/18 [place] Carbonate [Eskalith -] 450 mg PO BID 07/16/18 Magnesium Hydroxide [Milk of Magnesia -] 30 ml PO PRN 07/16/18 Risperidone [Risperdal -] 2 mg PO DAILY 07/16/18 Sennosides/Docusate Sodium [Senna-Docusate Sodium Tablet] 1 each PO HS 07/16/18 Nicotine Patch [Nicoderm Patch -] 14 mg TD DAILY patch 07/21/18 Albuterol 2.5/Ipratropium 0.5 [Duoneb -] 1 neb NEB Q4H 08/14/18 Anemia: Yes COPD: Yes (emphysema) Dementia: Yes HTN: Yes Seizures: Yes Thyroid Disease: Yes (hypothyroid) - Immunization History Td Vaccination: Yes TDAP Vaccination: Yes Immunization Up to Date: Yes - Suicide/Smoking/Psychosocial Hx Smoking History: Never smoked Have you smoked in the past 12 months: No Hx Alcohol Use: No Drug/Substance Use Hx: No Review of Systems - Review of Systems Able to Perform ROS?: No (2/2 medical condition) *Physical Exam - Vital Signs Vital Signs Temp Pulse Resp BP Pulse Ox 98.3 F 78 24 H 118/58 L 100 08/25/18 09:24 08/25/18 09:24 08/25/18 09:24 08/25/18 09:24 08/25/18 09:24 08/25/18 09:30 - Physical Exam Comments: GENERAL: Awake, w/ incoherent verbalization HEAD: No signs of trauma, normocephalic, atraumatic EYES: PERRLA, EOMI, sclera anicteric, conjunctiva clear ENT: Hearing grossly normal, nares patent, oropharynx clear without exudates. Moist mucosa LUNGS: Diffuse b/l wheezing HEART: Regular rate and rhythm, normal S1 and S2, no murmurs appreciated, peripheral pulses normal and equal bilaterally ABDOMEN: Soft, nontender, normoactive bowel sounds. No guarding, no rebound EXTREMITIES: Normal inspection, Normal range of motion, no edema. No clubbing or cyanosis NEUROLOGICAL: Cranial nerves II through XII grossly intact. Incoherent speech, follows simple commands SKIN: Eczema rash noted on face and BUE; otherwise warm and dry 08/25/18 09:15 ED Treatment Course - LABORATORY CBC & Chemistry Diagram: 08/25/18 09:36 08/25/18 09:36 Medical Decision Making - Medical Decision Making The pt is a 62F w/ a history of schizophrenia, bipolar disorder, HTN, hypothyroidism, and COPD who presents from [facility] for evaluation of increased aggression and increased WOB. Pt found to have wheezing on exam with possible COPD exacerbation. ED Course CMP, CBC, Trop I, UA CXR ECG Neb x3 Haldol 5mg IM for agitation CXR improved from previous and w/o acute infiltrate Labs unremarkable Pt symptoms improved s/p nebs Plan for D/C to [place] Discharge instructions and return precautions provided Dispo: home *DC/Admit/Observation/Transfer Diagnosis at time of Disposition: COPD (chronic obstructive pulmonary disease) Qualifiers: COPD type: unspecified COPD Qualified Code(s): J44.9 - Chronic obstructive pulmonary disease, unspecified - Discharge Dispostion Disposition: HOME Condition at time of disposition: Stable Decision to Admit order: No - Referrals Referrals: Alyce Farah MD [Primary Care Provider] - - Patient Instructions Printed Discharge Instructions: DI for Chronic Obstructive Pulmonary Disease Additional Instructions: You were seen in the Emergency Department for evaluation of increased work of breathing. You were given a breathing treatment. Your labs were unremarkable and your chest x-ray was negative for pneumonia. Review the handout provided at discharge. Follow up with your primary care provider. Return to the Emergency Department if you develop fevers/chills, chest pain, trouble breathing, nausea/ vomiting, worsening symptoms, or any new/concerning symptoms. - Post Discharge Activity
[2018-08-25 09:30] VITALS: TEMP 98.3; BMI 32.6
[2018-08-25] MEDS ORDERED: ALBUTEROL SO4 2.5/IPRATROPIUM 0.5 INH SOL 3 ML VIAL.NEB. NEB ONE (09:52)
[2018-08-25] MEDS: ALBUTEROL SO4 2.5/IPRATROPIUM 0.5 INH SOL 3 ML VIAL.NEB. NEB SCH ×3 (09:55→10:17)
[2018-08-25] MEDS ORDERED: HALOPERIDOL LACTATE 5 MG/ML IM ONE ×2 (09:56→09:57)
[2018-08-25 10:35] LABS: BASO % 0.8 % (0-2.0); EOS % 0.8 % (0-4.5); HEMATOCRIT 38.3 % (32.4-45.2); HEMOGLOBIN 12.9 GM/dL (10.7-15.3); LYMPH % 15.4 % (8-40); MCHC 33.7 g/dl (32.0-36.0); MEAN CELL VOLUME 91.9 fl (80-96); MEAN PLT VOLUME 6.6 fl (7.5-11.1); MONO % 6.1 % (3.8-10.2); NEUT % 76.9 % (42.8-82.8); PLATELET COUNT 273 K/MM3 (134-434); RBC 4.16 M/mm3 (3.60-5.2); RDW 14.3 % (11.6-15.6); WHITE BLOOD COUNT 8.1 K/mm3 (4.0-10.0)
[2018-08-25 10:51] LABS: ALBUMIN 3.8 g/dl (3.4-5.0); ALK PHOS 61 U/L (45-117); ANION GAP 5 MMOL/L (8-16); BILIRUBIN,TOTAL 0.6 mg/dL (0.2-1); BLOOD UREA NITROGEN 9.4 mg/dL (7-18); CALCIUM 9.1 mg/dL (8.5-10.1); CHLORIDE 102 mmol/L (98-107); CO2 27 mmol/L (21-32); CREATININE 0.8 mg/dL (0.55-1.3); GLUCOSE,RANDOM 103 mg/dL (74-106); POTASSIUM 3.8 mmol/L (3.5-5.1); SGOT/AST 15 U/L (15-37); SGPT/ALT 27 U/L (13-61); SODIUM 135 mmol/L (136-145); TOT PROT 6.3 g/dl (6.4-8.2)
--- NOTE | 2018-08-25 11:25 | PDOC ---
Attending Attestation - Resident Resident Name: Binu Jain - ED Attending Attestation I have performed the following: I have examined & evaluated the patient, The case was reviewed & discussed with the resident, I agree w/resident's findings & plan, Exceptions are as noted - HPI HPI: 08/25/18 11:15 62yo F hx schizophrenia, bipolar disorder, dementia, COPD who presents from [facility] with increased work of breathing and increased aggression. Pt is currently shouting expletives at ED staff but redirectable and able to answer questions. When asked if she feels SOB, she states yes. Pt audibly wheezing. Remaining hx difficult to obtain due to clinical status although pt denies fevers, chills, headaches, focal weakness/numbness, abd pain, CP, pain. Per [facility] staff, pt has been more aggressive than usual. They state at baseline, she can be aggressive but more so over the last day or so. They also report she has been wheezing and they were unable to check her vitals due to aggression. They report no other sxs. - Physicial Exam PE: 08/25/18 11:25 GENERAL: Awake, alert, oriented to name and place, shouting expletives at ED staff but redirectable HEAD: No signs of trauma EYES: PERRLA, EOMI, sclera anicteric, conjunctiva clear ENT: Auricles normal inspection, hearing grossly normal, nares patent, oropharynx clear without exudates. Moist mucosa NECK: Normal ROM, supple, no lymphadenopathy, JVD, or masses LUNGS: + diffuse expiratory wheezing, no increased WOB, no crackles HEART: Regular rate and rhythm, normal S1 and S2, no murmurs, rubs or gallops ABDOMEN: Soft, nontender, normoactive bowel sounds. No guarding, no rebound. No masses EXTREMITIES: Normal range of motion, no edema. No clubbing or cyanosis. No cords, erythema, or tenderness NEUROLOGICAL: Normal speech, cranial nerves intact, 5/5 strength in all 4 extremities, normal sensation to light touch in all 4 extremities, normal cerebellar exam, normal gait, normal tone SKIN: +psoriasis plaques to anterior hairline - Medical Decision Making 08/25/18 12:08 62yo F presents to the ED from [place] with increased aggression and increased WOB +wheezing on exam Pt cooperative and re
[2018-08-25 11:56] LABS: URINE APPEARANCE CLEAR; URINE BILIRUBIN NEGATIVE (NEGATIVE); URINE COLOR YELLOW; URINE GLUCOSE (UA) NEGATIVE (NEGATIVE); URINE KETONE NEGATIVE (NEGATIVE); URINE LEUK ESTERASE NEGATIVE (NEGATIVE); URINE NITRITE NEGATIVE (NEGATIVE); URINE PROTEIN NEGATIVE (NEGATIVE)
[2018-08-25 12:46] VITALS: BP 116/70; PULSE 93
--- NOTE | 2018-08-25 15:14 | EKG ---
Test Reason : Blood Pressure : / mmHG Vent. Rate : 080 BPM Atrial Rate : 080 BPM P-R Int : 166 ms QRS Dur : 070 ms QT Int : 352 ms P-R-T Axes : 086 055 050 degrees QTc Int : 405 ms NORMAL SINUS RHYTHM NORMAL ECG WHEN COMPARED WITH ECG OF 16-JUL-2018 03:25, NO SIGNIFICANT CHANGE WAS FOUND Confirmed by LADONNA PRITCHETT MD ([id number]) on 08/25/2018 3:14:34 PM Referred By: Confirmed By:LADONNA PRITCHETT MD
== END 2018-08-25 13:41 | disposition home or self-care (01) ==
LOC: JER 09:10
PROC: 3E0F7GC Introduction of Other Therapeutic Substance into Respiratory Tract, Via Natural or Artificial Opening (ICD-10-PCS; principal; 2018-08-25)
PROC: 3E023NZ Introduction of Analgesics, Hypnotics, Sedatives into Muscle, Percutaneous Approach (ICD-10-PCS; 2018-08-25)
DX: J44.9 Chronic obstructive pulmonary disease, unspecified (principal); F20.9 Schizophrenia, unspecified; F31.9 Bipolar disorder, unspecified; E03.9 Hypothyroidism, unspecified
CPT/HCPCS: 36415; 71045-TC-FY; 80053; 81003; 84484; 85025; 87086; 93005; 93010; 94640; 96372; 99285-25